=== PATIENT | female | born 1955 | race Caucasian/White ===

== ENCOUNTER 2018-04-28 12:06 | Inpatient (IN) | payer SELFPAY ==
[2018-04-28] MEDS ORDERED: Piperacillin/Tazobactam 4.5 GM VIAL ONE (12:13)
[2018-04-28] MEDS ORDERED: Morphine 4 MG/ML VIAL ONE (12:26)
[2018-04-28] MEDS ORDERED: Ondansetron PF 4 MG/2 ML Vial ONE ×2 (12:26→15:15)
[2018-04-28 12:49] LABS: Hemoglobin 17.2 g/dL (12.0-16.0); Mean Corpuscular Hemoglobin 31.5 pg (27.0-31.0); Mean Corpuscular Volume 95.2 fL (78.0-98.0); Platelet Count 292 thou/uL (130-400); RBC Distribution Width 11.7 % (11.5-14.5); Red Blood Cell (RBC) Count 5.46 mill/uL (4.20-5.40); White Blood Cell (WBC) Count 6.2 thou/uL (4.8-10.8)
--- NOTE | 2018-04-28 13:00 | RAD ---
AP VIEW CHEST: HISTORY: Possible perforated bowel. FINDINGS: AP view chest demonstrates a large amount of free intraperitoneal gas beneath the right and left kay diaphragm. The lungs are well aerated. No acute intrathoracic abnormality is seen. IMPRESSION: Large amount of free intraperitoneal air filling much of the peritoneal cavity. POS: [facility]
[2018-04-28] MEDS ORDERED: Fentanyl 100 MCG/2 ML VIAL ONE ×5 (13:03→18:05)
[2018-04-28 13:08] LABS: Lymphocytes 38 % (21-51); MDiff Complete? YES; Monocytes 3 % (0-10); Neutrophil 49 % (42-75); RBC Morphology Normal; Reactive Lymphocytes 9 % (0-10)
[2018-04-28 13:14] LABS: ALT (SGPT) 15 U/L (8-55); AST (SGOT) 31 U/L (5-34); Albumin 3.6 g/dL (3.4-4.8); Alkaline Phosphatase 61 U/L (40-150); Anion Gap 17 mmol/L (10-20); BUN (Urea Nitrogen) 8 mg/dL (9.8-20.1); Bilirubin, Total 0.4 mg/dL (0.2-1.2); Calc. Creatinine Clearance 0 mL/min (70-130); Calcium 8.5 mg/dL (7.8-10.44); Carbon Dioxide 17 mmol/L (23-31); Chloride 111 mmol/L (98-107); Estimated GFR-MDRD 78; Globulin 3.2 g/dL (2.4-3.5); Glucose 124 mg/dL (80-115); Potassium 4.6 mmol/L (3.5-5.1); Protein, Total 6.8 g/dL (6.0-8.3); Sodium 140 mmol/L (136-145)
[2018-04-28 13:15] LABS: INR-International Normal Ratio 1.2; PTT 27.2 SEC (22.9-36.1)
--- NOTE | 2018-04-28 13:15 | HP ---
HISTORY: Ms. Cheng is a 63-year-old woman with 20 pounds weight loss over the last 1 year associated with abnormal bowel habits including alternating episodes of constipation and diarrhea. She recently had some bloody bowel movements. The patient was undergoing a colonoscopy today. A colon mass was reportedly noted at approximately 20 cm from the anal verge and colon was inadvertently perforated. The patient was transported to the emergency department to be evaluated for surgical intervention. At the time of my evaluation, the patient is awake and alert. She reports a 10/10 abdominal pain associated with nausea and dry heaving. She denies any fevers or chills. PAST MEDICAL HISTORY: Pertinent for recurrent crampy abdominal pain over the last 1 year. PAST SURGICAL HISTORY: Pertinent for cervical spine diskectomy, childhood tonsillectomy and adenoidectomy, and total abdominal hysterectomy. SOCIAL HISTORY: She admits to smoking 10-12 cigarettes per day. She has smoked for over 30 years. She admits to occasional intake of ethanol in moderate amounts. She denies any illicit drug abuse. PRE-HOSPITAL MEDICATIONS: Includes melatonin, which she takes at nighttime for sleep. ALLERGIES: THE PATIENT DENIES ANY KNOWN DRUG ALLERGIES. REVIEW OF SYSTEMS: 10-point review of systems is essentially unremarkable except as stated in past medical history and chief complaint. PHYSICAL EXAMINATION: GENERAL: This reveals a 63-year-old normally developed woman, who is otherwise coherent and interactive, appears stated age. The patient is alert and oriented x3. She appears to be in acute distress secondary to severe abdominal pain. VITAL SIGNS: Today include blood pressure 111/78, pulse is 107, respiratory rate is 20, temperature is 98.2 degrees Fahrenheit, and oxygen saturation is 97% on room air. HEENT: Reveals normocephalic and atraumatic. EYES: Pupils are equal, round, reactive to light and accommodation. NECK: She has a healed right neck incision consistent with prior history of cervical neck diskectomy. HEART: Reveals regular rate with sinus tachycardia. No murmurs or gallops auscultated. LUNGS: Clear to auscultation bilaterally. Her breathing is regular and nonlabored. ABDOMEN: Soft and diffusely tender to palpation with gross rebound tenderness present. Liver and spleen nonpalpable below costal margin. EXTREMITIES: 2+ radial and pedal pulses bilaterally. No ankle edema is present. NEUROLOGIC: Reveals no focal deficits present. LABORATORY FINDINGS: Includes a CBC with 6200 white blood cells, hemoglobin and hematocrit noted at 17.2 and 52.0 respectively. Platelet count is 292,000. Metabolic profile as well as coagulation studies have been ordered, results pending at time of this dictation. IMPRESSION: 1. Acute colon perforation with profound peritonitis. 2. Reportedly colon mass, likely colon carcinoma given this patient's clinical history. PLAN: Exploratory laparotomy with partial colectomy and primary anastomosis. There is a possibility for colostomy or protective ileostomy if the bowel prep is inadequate. Above findings and plan has been discussed with the patient and her adult son at bedside. They both indicated understanding of information given. I answered their questions. The patient has granted consent for this admission and surgical intervention. Job ID: [id number]
[2018-04-28] MEDS ORDERED: Neomycin-Polymyxin 1 ML AMP ONE (13:18)
[2018-04-28] MEDS ORDERED: Albumin 5% 500 ML ONE ×2 (13:49→14:50)
[2018-04-28] MEDS ORDERED: CEFAZOLIN 1 GM VIAL ONE (14:20)
[2018-04-28] MEDS ORDERED: PHENYLEPHRINE-NS 100 MCG/ML 10 ML SYRINGE ONE ×2 (14:41→15:15)
[2018-04-28] MEDS ORDERED: Famotidine/PF 20 mg/2ml Vial ONE (14:50)
[2018-04-28] MEDS ORDERED: Fentanyl 250 MCG/5 ML VIAL ONE (14:50)
[2018-04-28] MEDS ORDERED: Vecuronium 10 MG VIAL ONE (14:50)
[2018-04-28] MEDS ORDERED: Norepinephrine 8 MG/0.9% NS 0 ML ONE (14:51)
[2018-04-28] MEDS ORDERED: Phenylephrine HCL 10 MG/ML VIAL ONE (14:52)
[2018-04-28] MEDS ORDERED: PROPOFOL 200 MG/20 ML VIAL ONE (15:15)
[2018-04-28] MEDS ORDERED: Succinylcholine Chloride 20 MG/ML 10 ml SYRINGE FS ONE (15:15)
[2018-04-28] MEDS ORDERED: Rocuronium Bromide 10 MG/ML (10ML VIAL) ONE (15:15)
[2018-04-28] MEDS ORDERED: ePHEDrine 50 MG/ML VIAL ONE (15:15)
[2018-04-28] MEDS ORDERED: Lidocaine 1% PF 5 ML VIAL ONE (15:15)
--- NOTE | 2018-04-28 15:19 | CON ---
DATE OF CONSULTATION: 04/28/2018 CONSULTING PHYSICIAN: Parminder Toure MD for [facility] Obstetric Hospitalist. REASON FOR CONSULTATION: Right adnexal mass encountered at laparotomy. HISTORY OF PRESENT ILLNESS: Ms. Cheng is a 63-year-old white female who was undergoing a colon[facility] for 20-pound weight loss with abnormal bowel habits including constipation and diarrhea. She had a perforation noted at the time of colonoscopy, approximately 20 cm from the anal verge. She was transported to the ED where Dr. Metz evaluated her, diagnosed peritonitis with bowel perforation, and the patient underwent exploratory laparotomy. Upon entering the abdominal cavity, Dr. Metz encountered a large right adnexal mass. This mass was evaluated by myself and appears to be likely ovarian malignancy, measuring approximately 20 x 10 x 10 cm. The patient is status post abdominal hysterectomy. No omental caking was noted. No areas consistent with metastasis were noted in the abdominal cavity, and no significant ascites was encountered upon entry. 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 PAST MEDICAL HISTORY: The patient has abdominal pain, otherwise unremarkable. PAST SURGICAL HISTORY: Cervical spine diskectomy and tonsils and adenoids. SOCIAL HISTORY: 10 to 12 cigarettes per day for 30 years. Occasional alcohol. No drug use. The patient's son is present, but is out of the postoperative family area at this time. ALLERGIES: NONE. MEDICATIONS: Melatonin. IMPRESSION: Likely, ovarian malignancy, status post abdominal hysterectomy with bowel perforation that will likely result in colostomy. No evidence of gross intraabdominal metastasis, but survey limited secondary to the patient's acute bowel perforation with fecal contamination. PLAN: Discussed with Dr. Metz our options and my concerns. I asked that he go ahead and remove the left adnexum, which he plans to do so during the case. We will draw CA-125 level immediately in recovery room. We will follow this. Likely, the patient has stage II or III ovarian malignancy. Appropriate management was complicated by the patient's acute peritonitis with bowel perforation. We will plan to follow up on final pathology as well as CA-125 and anticipate referral to Gynecologic Oncology. More extensive intraabdominal evaluation without gross metastasis would likely increase both the patient in hospital morbidity and mortality and would likely not alter management over the next 1 to 3 months. The patient could have complete staging procedure at the time of colostomy reversal or independently after convalescence from this episode of care. Job ID: [id number]
[2018-04-28] MEDS ORDERED: SUGAMMADEX SODIUM 500 MG/5 ML VIAL ONE (16:28)
[2018-04-28] MEDS ORDERED: Meperidine HCl/PF 25 MG/ML VIAL SLOW IVP PRN (17:27)
[2018-04-28] MEDS ORDERED: Promethazine HCl 25 MG/ML VIAL IM PRN ×2 (17:27→17:30)
[2018-04-28] MEDS ORDERED: Ketorolac Tromethamine 30 MG/ML VIAL IVP PRN (17:27)
[2018-04-28] MEDS ORDERED: Promethazine HCl 25 MG/ML VIAL SLOW IVP PRN (17:27)
[2018-04-28] MEDS ORDERED: Ondansetron HCl/PF 4 MG/2 ML Vial IVP PRN (17:27)
[2018-04-28] MEDS ORDERED: Communication Order-Pharmacy FS SCH (17:30)
[2018-04-28] MEDS ORDERED: diphenhydrAMINE 50 MG/ML VIAL IVP PRN (17:30)
[2018-04-28] MEDS ORDERED: diphenhydrAMINE 25 MG CAP PO PRN (17:30)
[2018-04-28] MEDS ORDERED: Naloxone HCl 0.4 mg/ml Vial IV PRN (17:30)
[2018-04-28] MEDS ORDERED: diphenhydrAMINE 50 MG/ML VIAL IM PRN (17:30)
[2018-04-28] MEDS ORDERED: Dextrose 5% in Water 1,000 ML IV PRN (17:30)
[2018-04-28] MEDS ORDERED: Dextrose 50% Abboject 50 ML SYRINGE SLOW IVP PRN (17:30)
[2018-04-28] MEDS ORDERED: HYDROmorphone 10 mg/100 ml CADD IVPB PRN (17:30)
[2018-04-28] MEDS ORDERED: Ondansetron PF 4 MG/2 ML Vial IVP PRN (17:30)
[2018-04-28] MEDS ORDERED: Ketorolac Tromethamine 30 MG/ML VIAL ONE (17:37)
[2018-04-28] MEDS ORDERED: Promethazine HCl 25 MG/ML VIAL ONE (17:45)
[2018-04-28] MEDS ORDERED: Meperidine HCl/PF 25 MG/ML VIAL ONE (18:02)
--- NOTE | 2018-04-28 18:37 | RAD ---
ABDOMEN ONE VIEW: History: Dobbhoff tube placement. Comparison: None. FINDINGS: An enteric tube is in place with the tip in the gastric fundus. Dobbhoff tube tip projects over the 4 th portion duodenum. There are distended loops of bowel in the abdomen. IMPRESSION: Satisfactory position of the Dobbhoff tube. POS: [facility]
--- NOTE | 2018-04-28 19:04 | OP ---
DATE OF PROCEDURE: 04/28/2018 PREOPERATIVE DIAGNOSES: 1. Colon perforation. 2. Colon mass. 3. Acute peritonitis. POSTOPERATIVE DIAGNOSES: 1. Stage 4 colorectal carcinoma with colon perforation. 2. Right ovarian carcinoma. PROCEDURES PERFORMED: 1. Exploratory laparotomy. 2. Right oophorectomy. 3. Low Anterior colo-rectal resection with end-colostomy. 4. Wedge liver biopsy. 5. Placement of feeding nasojejunal tube. ANESTHESIA: General endotracheal. ESTIMATED BLOOD LOSS: 300 mL. FLUIDS GIVEN: 1900 mL crystalloids and 1000 mL 5% albumin. COMPLICATIONS: None apparent to operation. INDICATIONS FOR PROCEDURE: A 63-year-old woman was undergoing colonoscopy to evaluate a 20 pounds weight loss associated with hematochezia. Colon perforation was identified. The patient is transferred to the care of Surgical Service for surgical intervention. Clinical examination revealed acute peritonitis. The patient was brought to the operating room for laparotomy. The findings are consistent with very bulky large right ovarian mass, multiple implants on the liver suspicious for metastatic disease, obstructive sigmoid and rectal masses requiring separate resections. DESCRIPTION OF PROCEDURE: Informed consent was obtained from the patient, was brought to the operating room and placed in supine position. Following general anesthesia, the abdomen was sterilely prepped and draped in the usual fashion. Shah catheter having been placed to bedside drain and a nasogastric tube inserted and placed to wall suction. A midline incision was made using #10 scalpel. Incision was carried through subcutaneous tissue to maintain hemostasis using cautery. The fascia was incised midline exposing the peritoneum beneath, which was grasped x2 with hemostats. The peritoneal cavity was sharply entered using Metzenbaum scissors. Immediately a very large bulky right ovarian mass was encountered. Additionally over 2000 mL of liquid stool was evacuated from the peritoneal cavity. We then proceeded with exploration. Small bowel was run from ligament of Treitz down to terminal ileum. No pathology identified. The large intestine was inspected from the cecum through the ascending, transverse, descending, sigmoid colon, and rectum. Approximately 6 cm from the peritoneal reflection, 5 mm perforation was noted medial to the sigmoid colon. We were able to close this temporarily to prevent further contamination. This was achieved using a pursestring suture of 3-0 silk. At that juncture, we decided to proceed with the sigmoidectomy. To achieve this rent approximately 4 cm from the perforation through which a contour stapler was introduced and the bowel was divided. Another rent was created in the mesentery of the descending colon approximately 6 cm proximal to the obstructive sigmoid colon mass. It was noted a contour stapler was introduced and the bowel was divided. Mesentery of the specimen was serially divided using LigaSure device with good hemostasis. The specimen was passed off the operative field. The abdomen was explored in all 4 quadrants. Liver was palpated of some multiple implants. I suspected this to be metastatic implants. The wedge liver biopsy was performed using a scalpel, sending 1 of this implants to Pathology for frozen section, which was consistent with adenocarcinoma on report. Good hemostasis was achieved from the biopsy site. I turned my attention to the bulky ovarian mass. This was mobilized into the wound bluntly along the right lateral gutter with good hemostasis achieved using cautery. Dissected out the ovarian ligament laterally dividing this between two clamps. The stump was suture ligated using a stick tie of 0 silk and this was also doubly ligated with a free tie of 0 silk. I did invite Dr. Martinez from Gynecology for an intraoperative consultation and he was agreeable with the right oophorectomy. Note that exploration of the abdominal cavity did not reveal any mesenteric or intraperitoneal implants. There clearly was no omental kicking. My initial plan was to proceed with a primary colorectal anastomosis with protective ileostomy. I proceeded to explore the rectum. Palpation of the rectum revealed a very hard rectal mass on the tip of my finger. I decided therefore to proceed with further dissection of the rectum below the peritoneal resection. I stayed close to the rectum. Care taken to avoid injury to the ureters. The mesorectum was serially divided using ligature. Approximately 4 cm below the peritoneal reflection encountered this bulky rectal mass. Further dissection took us to the distal aspect of the mass. I was able to mobilize the adherent bladder off the mass bluntly. Care taken to avoid injury to the bladder itself. I then applied a TA stapling device approximately 2 cm below this rectal mass, the rectum was divided. Specimen was passed off the operative field for transmission to Pathology. Throughout my exploration, the left tube and ovary were not identified as this may very well have been surgically removed during the patient's historical total abdominal hysterectomy. Finding no other pathology, exploration was terminated at this juncture and the abdomen was copiously irrigated with a liter of sterile saline. A core incision was then made in the left lower quadrant in the area chosen for the placement of the ostomy. This was achieved using #10 scalpel. Incision was carried down to the level of the fascia. I used a tonsil clamp to create a defect through this core incision dilating this defect to 3 fingerbreadths. Baldwin forceps introduced into the peritoneal cavity through this defect grasping the staple end of the descending colon, which was pulled through and secured within the abdominal cavity using stay sutures of 3-0 silk at 4 points. At this juncture, a feeding nasojejunal tube was then introduced by Anesthesia, tip of which was palpated by myself within the gastric lumen. I manipulated the tip of this catheter into proximal small bowel without resistance. All sponges and instruments were reported as correct x2. Small bowel was returned to normal anatomic location. Omentum was drawn over the remainder of the viscera. Fascia was approximated in the midline using a running stitch of #1 single stranded PDS. Subcutaneous tissues were pulse lavaged with 3 L of saline. Using a separate closing instruments, the skin was closed using quentin and sterile dressings was applied. I turned my attention to the staple end of the descending colon through the skin , where the ostomy will be formed. I excised the staple line using the Fuchs scissors. The functional Elva colostomy was protected using interrupted sutures of 3-0 Vicryl. Ostomy appliance was put in place. The patient tolerated the operation without any apparent complication and was returned to the recovery room in satisfactory condition. Job ID: [id number] [facility]
[2018-04-28] MEDS: Sodium Chloride 0.9% 1,000 ML IV SCH (19:30)
[2018-04-28 19:41] VITALS: BMI 23.7
[2018-04-28] MEDS ORDERED: Lactated Ringer's 500 ML IV SCH (21:00)
[2018-04-28] MEDS: Ketorolac Tromethamine 30 MG/ML VIAL IVP SCH (21:07)
[2018-04-28] MEDS: Piperacillin/Tazobactam 3.375 GM in Sodium Chloride 0.9% 100 ML IVPB SCH (21:07)
[2018-04-28 21:28] LABS: Hemoglobin 10.9 g/dL (12.0-16.0); Mean Corpuscular HGB CONC 33.2 g/dL (32.0-36.0); Mean Corpuscular Hemoglobin 32.4 pg (27.0-31.0); Mean Corpuscular Volume 97.5 fL (78.0-98.0); Platelet Count 181 thou/uL (130-400); RBC Distribution Width 11.6 % (11.5-14.5); Red Blood Cell (RBC) Count 3.35 mill/uL (4.20-5.40)
[2018-04-28 21:43] LABS: Lactic Acid 2.1 mmol/L (0.5-2.2)
[2018-04-28 21:46] LABS: Band 9 % (5-11); Eosinophils 1 % (0-10); Lymphocytes 44 % (21-51); MDiff Complete? YES; Monocytes 9 % (0-10); Neutrophil 29 % (42-75); Reactive Lymphocytes 8 % (0-10)
[2018-04-28 21:48] LABS: Anion Gap 10 mmol/L (10-20); BUN (Urea Nitrogen) 10 mg/dL (9.8-20.1); Calc. Creatinine Clearance 66 mL/min (70-130); Calcium 6.8 mg/dL (7.8-10.44); Carbon Dioxide 17 mmol/L (23-31); Chloride 117 mmol/L (98-107); Estimated GFR-MDRD 74; Glucose 151 mg/dL (80-115); Magnesium 1.1 mg/dL (1.6-2.6); Phosphorus 2.9 mg/dL (2.3-4.7); Potassium 3.4 mmol/L (3.5-5.1); Sodium 141 mmol/L (136-145)
[2018-04-28] MEDS ORDERED: Magnesium 2 GM/50 ML 2 GM in Premix Bag 1 BAG IVPB SCH (22:15)
[2018-04-28] MEDS ORDERED: Potassium Phosphate 30 MMOL in Sodium Chloride 0.9% 500 ML IVPB SCH (23:00)
[2018-04-29] MEDS: Ketorolac Tromethamine 30 MG/ML VIAL IVP SCH ×5 (00:19→23:59)
[2018-04-29] MEDS ORDERED: Lactated Ringer's 500 ML IV SCH (00:45)
[2018-04-29] MEDS ORDERED: Lactated Ringer's 1,000 ML IV SCH ×3 (01:15→12:00)
[2018-04-29] MEDS: Piperacillin/Tazobactam 3.375 GM in Sodium Chloride 0.9% 100 ML IVPB SCH ×4 (01:57→20:04)
[2018-04-29] MEDS ORDERED: Hydrocortisone Sod Succ/PF 100 mg/2 ml Vial IVP SCH (02:23)
[2018-04-29 02:38] LABS: Base Excess (BEa) -4.1 mEq/L (-2.0 to +3.0); CO2 Tension 32.8 mmHg (35.0-45.0); Hemoglobin (Hb) 9.4 g/dL (12.0-16.0); O2 Tension (PaO2) 70.3 mmHg (> 80.0)
[2018-04-29 02:39] LABS: Calcium, Ionized 1.04 mmol/L (1.12-1.30); Potassium - ABG Lab 3.95 mmol/L (3.70-5.30); Puncture Site LINE
[2018-04-29] MEDS: Norepinephrine 8 MG/250 ML BAG IVPB PRN ×3 (02:54→16:52)
[2018-04-29] MEDS: Sodium Chloride 0.9% 1,000 ML IV SCH (02:57)
[2018-04-29] MEDS ORDERED: Calcium Chloride 1 GM/10 ML Abboject SYRINGE IVP SCH (03:00)
[2018-04-29 03:06] LABS: Hemoglobin 9.8 g/dL (12.0-16.0); Mean Corpuscular HGB CONC 33.5 g/dL (32.0-36.0); Mean Corpuscular Hemoglobin 32.5 pg (27.0-31.0); Mean Corpuscular Volume 96.9 fL (78.0-98.0); Mean Platelet Volume 7.2 fL (7.4-10.4); Platelet Count 164 thou/uL (130-400); RBC Distribution Width 11.7 % (11.5-14.5)
[2018-04-29 03:50] LABS: Band 22 % (5-11); Lymphocytes 39 % (21-51); MDiff Complete? YES; Metamyelocyte 2 % (0-0); Monocytes 5 % (0-10); Neutrophil 28 % (42-75); Reactive Lymphocytes 4 % (0-10)
[2018-04-29 03:57] LABS: Anion Gap 11 mmol/L (10-20); BUN (Urea Nitrogen) 11 mg/dL (9.8-20.1); Calc. Creatinine Clearance 59 mL/min (70-130); Calcium 6.6 mg/dL (7.8-10.44); Carbon Dioxide 16 mmol/L (23-31); Chloride 118 mmol/L (98-107); Estimated GFR-MDRD 65; Glucose 146 mg/dL (80-115); Magnesium 1.6 mg/dL (1.6-2.6); Phosphorus 4.7 mg/dL (2.3-4.7); Potassium 3.8 mmol/L (3.5-5.1); Sodium 141 mmol/L (136-145)
[2018-04-29 04:00] LABS: Lactic Acid 1.7 mmol/L (0.5-2.2)
[2018-04-29 04:26] LABS: Bilirubin Small (Negative); Blood, Urine Moderate (Negative); Clarity CLEAR (Clear); Glucose, Urine (Dipstick) Negative (Negative); Leukocyte Trace (Negative); Nitrite Negative (Negative); Protein, Urine (Dipstick) 30 mg/dL (Neg-Trace); Specific Gravity, Urine 1.029 (1.002-1.036)
[2018-04-29 04:28] LABS: Bacteria/HPF None Seen HPF (None Seen); RBC/HPF 21-50 HPF (0-3)
[2018-04-29 04:29] LABS: Pathc Cast-AUWi Flag 4.94 (0-2.49)
[2018-04-29 04:39] LABS: Renal Epithelial 0-3 HPF (0-3)
[2018-04-29 04:41] LABS: Other Casts/LPF 0-3 FINELY GRAN LPF (0-3 Hyaline)
[2018-04-29 04:45] LABS: Urine Culture Reflex No No
[2018-04-29] MEDS ORDERED: Magnesium Sulfate 4 GM in Sodium Chloride 0.9% 250 ML 250 ML IVPB SCH (07:15)
--- NOTE | 2018-04-29 07:37 | PRG ---
DATE OF SERVICE: 04/29/2018 TIME OF SERVICE: 0720 hours. SUBJECTIVE: Ms. Cheng is relaxing this morning. She actually looks very well considering the large surgical procedure she had yesterday. Please see Trauma Services notes for vitals and other findings. I reviewed the operative note and noted that Dr. Metz was unable to locate the left adnexa. I agree with him as that was likely removed at the time of her hysterectomy. I also noted that they found a large rectal mass. It is unclear as to whether or not this rectal mass has relationship to her large adnexal mass, although this would not be impossible. 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 The other possibility is that this is a secondary primary in the right adnexa. Third possibility would be ovarian primary with metastasis to obstructing rectal mass that was found. We will await pathology results to further assess as this may affect future surgical and chemotherapy management of the patient. We will check the patient out to OB Hospitalist today and follow from a distance. Awaiting pathology results. Job ID: [id number]
[2018-04-29] MEDS: Enoxaparin Sodium 40 MG/0.4 ML SYRINGE SC SCH (08:25)
[2018-04-29] MEDS: Lactated Ringer's 1,000 ML IV SCH ×3 (08:30→23:41)
--- NOTE | 2018-04-29 09:43 | RAD ---
CHEST ONE VIEW: HISTORY: Central line placement. COMPARISON: Radiograph from the prior day. FINDINGS: A left subclavian central venous catheter sits at the inferior SVC. No pneumothorax. Free intraperi toneal air is not well assessed on this examination. Two enteric tubes are in place. The enteric suction catheter tip sits over the gastric fundus, and t he weighted feeding tube tip is below the diaphragm and out of the field of view. Layering effusions. IMPRESSION: 1. Lines and tubes as above. 2. Free intraperitoneal air is not well assessed on this examination. POS: [facility]
--- NOTE | 2018-04-29 11:43 | PRG ---
DATE OF SERVICE: 04/29/2018 SUBJECTIVE: Ms. Cheng is a 63-year-old woman, who is postop day #1, status post exploratory laparotomy, right salpingo-oophorectomy, and extended Keeley's procedure. Overnight, the patient has required a norepinephrine at 25 mcg/minute to support blood pressure. Urinary output has been marginal. The patient had received fluid boluses in the interim. She is awake and alert. She reports adequate pain control. [place] Coma Scale is noted at 15. OBJECTIVE: VITAL SIGNS: This morning, blood pressure 94/65, pulse is 119, respiratory rate is 20, temperature 97.6 degrees Fahrenheit, oxygen saturation is 96% on 2 L by nasal cannula oxygen. HEENT: Pupils are equal, round, reactive to light and accommodation. She has no jugular venous distention noted. Oral mucosa is somewhat dry. Otherwise is pink in color. HEART: Reveals regular rate with sinus tachycardia. No murmurs or gallops auscultated. LUNGS: Clear to auscultation bilaterally. Breathing, regular and nonlabored. ABDOMEN: Soft and nondistended. Incision is intact. Dressing is dry. Colostomy is viable with small amount of liquid stool in the appliance. EXTREMITIES: Reveal 2 +radial and pedal pulses bilaterally. No ankle edema is present. NEUROLOGIC: Reveals no focal deficits present. LABORATORY FINDINGS: Today includes a CBC with 2000 white blood cells, hemoglobin 9.8, hematocrit 29.1, platelet count is 164,000. Differential count is as follows; 28 segmented neutrophils, 22 bands, 39 lymphocytes, 5 monocytes. Metabolic profile; sodium 141, potassium is 3.8, chloride is 118, bicarb is 16, creatinine is 0.88, BUN is 11, glucose is 146, magnesium 1.6, phosphorus is 4.7. Total procalcitonin is elevated at 47.89. Serum cortisol level is 28. IMPRESSION: 1. Postop day #1, status post exploratory laparotomy. 2. Metastatic colorectal carcinoma. 3. Right ovarian carcinoma. 4. Septic shock secondary to fecal peritonitis. 5. Acute hypomagnesemia. 6. Acute non-gapped metabolic acidosis. PLAN: 1. Continue with antibiotic therapy. 2. Optimize fluid resuscitation. Additional fluid boluses are required and resuscitation will be guided using central venous access. 3. Correct abnormal electrolytes. 4. We will ask Oncology to evaluate the patient regarding the metastatic colorectal and right ovarian carcinoma. 5. Above findings and plan discussed with the patient, who indicates understanding of information given. I answered her questions. Job ID: [id number]
--- NOTE | 2018-04-29 12:31 | OP ---
DATE OF PROCEDURE: 04/29/2018 INDICATION FOR PROCEDURE: Ms. Cheng is a 63-year-old woman, who is postop day #1, status post exploratory laparotomy, bowel resection, colostomy, and right oophorectomy. The patient had fecal peritonitis from perforated colon. She has required vasopressor support overnight. Fluid resuscitation is ongoing. Decision was made to place a central venous catheter to guide resuscitation. DESCRIPTION OF PROCEDURE: Informed consent obtained from the patient, who was placed in supine position. The left chest wall sterilely prepped and draped in usual fashion. The skin below the left clavicle was anesthetized with 1% lidocaine. Left subclavian vein was cannulated with an 18-gauge introducer needle returning dark venous blood. Needle was withdrawn over the guidewire. A stab incision was made adjacent to the guidewire using 11 scalpel. The dilator was passed over the guidewire down in the subcutaneous tissues. Triple-lumen central venous catheter was then advanced over the guidewire and placed in the left subclavian vein without resistance stopping at the 18 cm yudith. Guidewire was removed. Dark venous blood was aspirated from all 3 ports, which were individually flushed with saline. Catheter was secured to anterior chest wall using 3-0 silk suture at 2 points. Sterile dressings were applied. The patient tolerated this procedure without any apparent complication. Chest x-ray confirmed proper placement of the catheter. No pneumothorax present. Job ID: [id number]
[2018-04-29] MEDS ORDERED: Sodium Chloride 0.9% (PF) 10 ML VIAL FS PRN (14:50)
[2018-04-29] MEDS ORDERED: Pantoprazole 40 MG VIAL IVP SCH (15:00)
[2018-04-29] MEDS: Hydrocortisone Sod Succ/PF 100 mg/2 ml Vial IVP SCH (17:13)
[2018-04-30] MEDS: Norepinephrine 8 MG/250 ML BAG IVPB PRN (02:14)
[2018-04-30] MEDS: Piperacillin/Tazobactam 3.375 GM in Sodium Chloride 0.9% 100 ML IVPB SCH ×4 (02:14→19:58)
[2018-04-30] MEDS: Ketorolac Tromethamine 30 MG/ML VIAL IVP SCH ×3 (06:01→18:33)
[2018-04-30] MEDS: Hydrocortisone Sod Succ/PF 100 mg/2 ml Vial IVP SCH ×5 (06:01→23:10)
[2018-04-30 06:42] LABS: Anion Gap 10 mmol/L (10-20); BUN (Urea Nitrogen) 9 mg/dL (9.8-20.1); Calc. Creatinine Clearance 64 mL/min (70-130); Calcium 7.9 mg/dL (7.8-10.44); Carbon Dioxide 20 mmol/L (23-31); Chloride 116 mmol/L (98-107); Estimated GFR-MDRD 71; Glucose 91 mg/dL (80-115); Magnesium 1.9 mg/dL (1.6-2.6); Potassium 3.9 mmol/L (3.5-5.1); Sodium 142 mmol/L (136-145)
[2018-04-30 06:51] LABS: Mean Corpuscular HGB CONC 33.4 g/dL (32.0-36.0); Mean Corpuscular Hemoglobin 32.4 pg (27.0-31.0); Mean Platelet Volume 7.1 fL (7.4-10.4); Platelet Count 148 thou/uL (130-400); Red Blood Cell (RBC) Count 2.76 mill/uL (4.20-5.40); White Blood Cell (WBC) Count 16.6 thou/uL (4.8-10.8)
[2018-04-30 06:57] LABS: Band 54 % (5-11); Lymphocytes 4 % (21-51); MDiff Complete? YES; Metamyelocyte 2 % (0-0); Monocytes 5 % (0-10); Neutrophil 29 % (42-75); Platelet Morphology Comment Appears Adequate; Polychromasia SLIGHT = 2-3 cells (100X) (0-2/hpf); Reactive Lymphocytes 6 % (0-10); Reflex for Review?? YES; Vacuoles MODERATE
[2018-04-30] MEDS: Enoxaparin Sodium 40 MG/0.4 ML SYRINGE SC SCH (08:44)
[2018-04-30] MEDS: Pantoprazole 40 MG VIAL IVP SCH (08:44)
[2018-04-30] MEDS: Lactated Ringer's 1,000 ML IV SCH ×3 (09:36→19:58)
--- NOTE | 2018-04-30 10:38 | PRG ---
DATE OF SERVICE: 04/30/2018 SUBJECTIVE: Ms. Cheng is a 63-year-old woman, who is postoperative day #2, status post exploratory laparotomy with low anterior resection and excision of sigmoid and rectal masses as well as right oophorectomy. The patient has been in the intensive care unit on vasopressor support for acute septic shock secondary to fecal peritonitis. This morning, she has been surgically weaned off vasopressors. Urinary output is adequate. The patient is awake and alert, reporting adequate pain control. PHYSICAL EXAMINATION: VITAL SIGNS: Currently off vasopressor support includes blood pressure 128/64, pulse is 104, respiratory rate is 26, temperature is 97.9 degrees Fahrenheit, maximum temperature in last 24 hours is 98.4 degrees Fahrenheit, oxygen saturation is 93% on room air. HEENT: Reveals pupils are equal, round, reactive to light and accommodation. Extraocular muscles are intact bilaterally. No sclerae icterus present. NECK: She has no jugular venous distention noted. HEART: Reveals regular rate with sinus tachycardia. No murmurs or gallops auscultated. LUNGS: Clear to auscultation bilaterally. Her breathing, regular and nonlabored. ABDOMEN: Soft and nondistended. Incision is intact, clean, dry. Colostomy is viable with minimal amount of liquid stool and gas in the appliance. Nasogastric tube had returned 100 mL in the last 24 hours of slightly bile-tinged gastric effluent. EXTREMITIES: Reveal 2+ radial and pedal pulses bilaterally. No ankle edema is present. NEUROLOGIC: Reveals no focal deficits present. LABORATORY FINDINGS: Today includes a CBC with 16,600 white blood cells, hemoglobin and hematocrit are 9.0 and 26.8 respectively, platelet count is 148,000. Metabolic profile; sodium 142, potassium 3.9, chloride is 116, bicarb is 20, BUN is 9, creatinine is 0.81, glucose is 91, magnesium is 1.9, and phosphorus is 3.0. IMPRESSION: 1. Postoperative day #2, status post exploratory laparotomy. 2. Metastatic colorectal carcinoma. 3. Right ovarian carcinoma. 4. Acute hypokalemia. 5. Acute hypomagnesemia. PLAN: 1. Correct abnormal electrolytes. 2. We will discontinue nasogastric tube and initiate clear liquid diet. 3. Discontinue Shah catheter as well as the arterial line. 4. We will increase activity per Physical and Occupational Therapy. The patient is hemodynamically stable and will be transferred out of the ICU to general surgical floor today. We will ask Oncology to evaluate the patient once the pathology report is available. Job ID: [id number]
[2018-04-30] MEDS ORDERED: traMADol HCl 50 MG TAB PO PRN (10:52)
[2018-04-30] MEDS ORDERED: Clopidogrel Bisulfate 75 MG TAB ONE (11:29)
[2018-04-30] MEDS: Acetaminophen 500 MG TAB PO SCH ×3 (11:43→23:09)
[2018-04-30 16:14] LABS: Ionized Calcium 4.2 mg/dL (4.5-5.6)
[2018-04-30] MEDS: traMADol HCl 50 MG TAB PO PRN (20:35)
[2018-05-01] MEDS: traMADol HCl 50 MG TAB PO PRN ×4 (02:24→19:50)
[2018-05-01] MEDS: Piperacillin/Tazobactam 3.375 GM in Sodium Chloride 0.9% 100 ML IVPB SCH ×4 (02:24→19:48)
[2018-05-01] MEDS: Acetaminophen 500 MG TAB PO SCH ×4 (05:36→23:03)
[2018-05-01] MEDS: Lactated Ringer's 1,000 ML IV SCH (05:36)
[2018-05-01] MEDS: Hydrocortisone Sod Succ/PF 100 mg/2 ml Vial IVP SCH ×4 (05:38→23:03)
[2018-05-01 06:03] LABS: Band 15 % (5-11); Dohle Bodies SLIGHT; Hemoglobin 9.6 g/dL (12.0-16.0); Lymphocytes 3 % (21-51); MDiff Complete? YES; Mean Corpuscular HGB CONC 32.6 g/dL (32.0-36.0); Mean Corpuscular Hemoglobin 32.1 pg (27.0-31.0); Mean Corpuscular Volume 98.3 fL (78.0-98.0); Mean Platelet Volume 7.7 fL (7.4-10.4); Monocytes 2 % (0-10); Neutrophil 80 % (42-75); Platelet Count 87 thou/uL (130-400); Platelet Morphology Comment Appears Decreased; Red Blood Cell (RBC) Count 2.99 mill/uL (4.20-5.40); White Blood Cell (WBC) Count 16.3 thou/uL (4.8-10.8)
[2018-05-01 06:07] LABS: Anion Gap 9 mmol/L (10-20); BUN (Urea Nitrogen) 12 mg/dL (9.8-20.1); Calc. Creatinine Clearance 71 mL/min (70-130); Calcium 7.6 mg/dL (7.8-10.44); Carbon Dioxide 21 mmol/L (23-31); Chloride 117 mmol/L (98-107); Estimated GFR-MDRD 81; Glucose 77 mg/dL (80-115); Magnesium 1.5 mg/dL (1.6-2.6); Phosphorus 2.6 mg/dL (2.3-4.7); Potassium 3.3 mmol/L (3.5-5.1); Sodium 144 mmol/L (136-145)
[2018-05-01] MEDS ORDERED: Non-Formulary Item 1 EACH (Melatonin [Melatonin] 5 MG) PO PRN (07:24)
[2018-05-01] MEDS ORDERED: Magnesium Sulfate 3 GM in Sodium Chloride 0.9% 250 ML 250 ML IVPB SCH (07:30)
[2018-05-01] MEDS ORDERED: Potassium Chloride 40 MEQ in Premix Bag 1 BAG IVPB SCH (07:30)
[2018-05-01] MEDS ORDERED: Potassium Chloride 40 MEQ, Magnesium Sulfate 3 GM in Sodium Chloride 0.9% 250 ML 250 ML IVPB SCH (07:30)
[2018-05-01] MEDS: Pantoprazole 40 MG VIAL IVP SCH (08:27)
[2018-05-01] MEDS: Enoxaparin Sodium 40 MG/0.4 ML SYRINGE SC SCH (08:28)
[2018-05-01] MEDS ORDERED: Melatonin 3 MG TAB PO PRN (11:24)
--- NOTE | 2018-05-01 13:12 | PRG ---
DATE OF SERVICE: 05/01/2018 SUBJECTIVE: Ms. Cheng is a 63-year-old woman who is postoperative day #3 status post exploratory laparotomy, low anterior resection for colorectal carcinoma, right oophorectomy, and liver biopsy. The patient is awake and alert today. She reports adequate pain control. She is tolerating clear liquid diet. Urinary output has been adequate. The liver biopsy is reported metastatic adenocarcinoma. Remainder of the pathology report for the right ovarian mass, colon and rectum pending at this time. OBJECTIVE: VITAL SIGNS: This morning includes blood pressure 115/76, pulse is 94, respiratory rate is 16, temperature is 97.9 degrees Fahrenheit, oxygen saturation is 95% on 2 L by nasal cannula oxygen. HEART: Reveals regular rate and rhythm. No murmurs or gallops auscultated. LUNGS: Clear to auscultation bilaterally. Her breathing, regular and nonlabored. ABDOMEN: Soft and nondistended. Incision is intact clean dry. The colostomy is viable with some liquid stool and a little bit of gas. Bowel sounds in all 4 quadrants appear normoactive. NEUROLOGIC: Reveals no focal deficits present. LABORATORY FINDINGS: Today include a CBC with 62,200 white blood cells, hemoglobin and hematocrit 9.6 and 29.4 respectively. Platelet count is 87,000. Differential count is as follows 80 segmented neutrophils, 15 bands, 3 lymphocytes, and 2 monocytes. Metabolic profile; sodium 144, potassium 3.3, chloride is 117, bicarb 21, BUN 12, creatinine 0.73, glucose is 77, magnesium 1.5, phosphorus is 2.6. IMPRESSION: 1. Postop day #3 status post exploratory laparotomy. 2. Metastatic colorectal carcinoma. 3. Acute hypokalemia. 4. Acute hypomagnesemia. 5. Acute hypophosphatemia. PLAN: 1. Correct abnormal electrolytes. 2. We will advance diet as tolerated. 3. Increase activity per Physical and Occupational Therapy. 4. We will ask Oncology to evaluate the patient once the report has been rendered on the surgical specimen. The above findings and plan discussed with the patient who indicates understanding of information given. I have answered her questions. Job ID: [id number]
[2018-05-02] MEDS: Piperacillin/Tazobactam 3.375 GM in Sodium Chloride 0.9% 100 ML IVPB SCH ×4 (02:21→20:21)
[2018-05-02] MEDS: traMADol HCl 50 MG TAB PO PRN ×3 (02:35→17:10)
[2018-05-02] MEDS: Hydrocortisone Sod Succ/PF 100 mg/2 ml Vial IVP SCH (05:11)
[2018-05-02] MEDS: Acetaminophen 500 MG TAB PO SCH ×4 (05:12→23:14)
[2018-05-02 05:49] LABS: Anion Gap 11 mmol/L (10-20); BUN (Urea Nitrogen) 17 mg/dL (9.8-20.1); Calc. Creatinine Clearance 70 mL/min (70-130); Calcium 7.9 mg/dL (7.8-10.44); Carbon Dioxide 22 mmol/L (23-31); Chloride 112 mmol/L (98-107); Estimated GFR-MDRD 79; Glucose 76 mg/dL (80-115); Magnesium 1.8 mg/dL (1.6-2.6); Phosphorus 3.6 mg/dL (2.3-4.7); Potassium 3.6 mmol/L (3.5-5.1); Sodium 141 mmol/L (136-145)
[2018-05-02 05:54] LABS: Band 11 % (5-11); Hemoglobin 9.4 g/dL (12.0-16.0); Lymphocytes 9 % (21-51); MDiff Complete? YES; Mean Corpuscular HGB CONC 33.6 g/dL (32.0-36.0); Mean Corpuscular Volume 98.4 fL (78.0-98.0); Mean Platelet Volume 8.1 fL (7.4-10.4); Neutrophil 80 % (42-75); Platelet Count 111 thou/uL (130-400); Platelet Morphology Comment Appears Adequate; RBC Distribution Width 12.1 % (11.5-14.5); Red Blood Cell (RBC) Count 2.85 mill/uL (4.20-5.40)
[2018-05-02] MEDS ORDERED: Magnesium 2 GM/50 ML 2 GM in Premix Bag 1 BAG IVPB SCH (07:30)
[2018-05-02] MEDS ORDERED: Potassium Phosphate 15 MMOL in Sodium Chloride 0.9% 250 ML 250 ML IVPB SCH (07:30)
[2018-05-02] MEDS: Enoxaparin Sodium 40 MG/0.4 ML SYRINGE SC SCH (08:05)
[2018-05-02] MEDS: Pantoprazole 40 MG VIAL IVP SCH (08:06)
--- NOTE | 2018-05-02 12:31 | PRG ---
DATE OF SERVICE: 05/02/2018 SUBJECTIVE: The patient was seen this morning sitting up in chair, well appearing with no signs of any acute distress. She has reported that she slept well overnight and is tolerating a full liquid diet. She denies nausea, vomiting, or diarrhea. Reports pain is well controlled. She has no complaints. Asked questions about visit from Oncology. They were asked to see the patient yesterday by Dr. Metz, and it is expected that they will see her today. OBJECTIVE: VITAL SIGNS: Temperature 98.3, pulse 77, respirations 14, oxygen saturation 92% on room air, blood pressure 131/88. GENERAL: Well-appearing middle-aged female, sitting up in chair with positive ostomy output. No signs of acute distress. PULMONARY: Equal chest rise and fall. Clear breath sounds bilaterally. No signs of acute respiratory distress. HEART: Regular rate and rhythm. No murmurs, gallops, or rubs. ABDOMEN: Soft, nontender, nondistended. Midline abdominal wound is clean, dry, and intact. Ostomy appearing well with positive liquid brown stool in pouch. EXTREMITIES: Gross motor and sensation intact in all extremities. 2+ pulses in all extremities. No significant swelling noted. LABORATORY VALUES: White count 20.0, hemoglobin 9.4, hematocrit 28.1, platelets 111. Sodium 141, potassium 3.4, chloride 112, carbon dioxide 22, BUN 17, creatinine 0.74, glucose 76, phos 3.6, magnesium 1.8. DIAGNOSTIC FINDINGS: There are no diagnostic findings to report. ASSESSMENT: 1. Postop day #4, status post ex lap with colorectal resection. 2. Metastatic colorectal carcinoma. 3. Septic shock, resolved. 4. Hypokalemia. 5. Hypomagnesemia. 6. Hypophosphatemia. PLAN: Correct electrolytes today with IV replacement. Advance to regular diet. Continue work with physical and occupational therapy pending recommendations by Oncology. They were consulted yesterday and should see the patient today. The patient was seen and examined today by myself and the patient was discussed with Dr. Metz this morning after rounds. Job ID: [id number]
--- NOTE | 2018-05-02 14:39 | CON ---
DATE OF CONSULTATION: REASON FOR CONSULT: Metastatic rectal cancer. HISTORY OF PRESENT ILLNESS: The patient is a pleasant 63-year-old female, who has had a 20-pound weight loss and a change in bowel habits over the past several months. She admits to bloody bowel movements. She was having colonoscopy this past Saturday. There was a colon mass noted at approximately 20 cm from the anal verge. The mass was not overtly perforated. She was sent to the emergency room for evaluation. Dr. Metz saw the patient and felt she had peritonitis. She underwent an exploratory laparotomy. There was a large adnexal mass noted measuring 20 x 10 x 10. She also had multiple implants on the liver suspicious for metastatic disease. There was an obstructive sigmoid and rectal mass. A right oophorectomy, low anterior colorectal resection with end-colostomy, and wedge liver biopsy were performed. All three pathologies have returned adenocarcinoma consistent with rectum. The sigmoid tumor measured 2.5 x 2 x 1.6. The rectal mass measured 7.5 x 5.4 x 2.0. 0/22 lymph nodes were positive for tumor. The patient is recovering from her surgery and now eating. We are asked to see the patient regarding treatment options. PAST MEDICAL HISTORY: Tobacco use. PAST SURGICAL HISTORY: 1. Cervical discectomy. 2. Total abdominal hysterectomy. ALLERGIES: NO KNOWN DRUG ALLERGIES. HOME MEDICATIONS: None. FAMILY HISTORY: No history of colon cancer. SOCIAL HISTORY: Single, cares for her 87-year-old mother. A [id number] history of smoking. No alcohol or illicit drug use. REVIEW OF SYSTEMS: Ten-point review of systems is negative except for noted in the HPI. PHYSICAL EXAMINATION: VITAL SIGNS: Temperature is 98.2, pulse is 93, respiratory rate 14, blood pressure is 135/86, and she is 94% on room air. GENERAL: Well-developed thin female, in no acute distress. HEENT: Normocephalic, atraumatic. Pupils are equal and reactive to light. NECK: Supple. CARDIOVASCULAR: CV is regular rate and rhythm. LUNGS: Clear. ABDOMEN: Tender. Bowel sounds are positive. She has midline incision with quentin intact by left colonoscopy with brown drainage. EXTREMITIES. There is no clubbing, cyanosis, or edema. SKIN: No rash. HEMATOLOGICAL: There is no petechiae or purpura. NEUROLOGICAL: Nonfocal. PSYCH: The patient is alert, oriented, and appropriate. PERTINENT LABS AND X-RAYS: Current WBCs 20, hemoglobin 9.4, hematocrit 28.1, and platelet count is 111,000. She has 80% neutrophils, 11% bands, 9% lymphocytes. PT is 15, INR is 1.2, and PTT is 27.2. Sodium 141, potassium 3.6, chloride 112, CO2 is 22, BUN is 17, creatinine 0.74, calcium 7.9, lactic acid 1.7, phosphorus 3.6, and magnesium 1.8. CA-125 is 41.7. Total bilirubin is 0.4, AST is 31, ALT is 15, and alkaline phosphatase is 61. Serum total protein is 6.8, albumin 3.6, and globulin 3.1. ASSESSMENT: Metastatic rectal cancer with ovarian, liver, and colon Metastases. DISCUSSION: The patient is a candidate for chemotherapy. She will recover from her surgery and follow up in the outpatient setting with Dr. Rodriguez on May 19 at 9:15 a.m. Financial counselors have been asked to evaluate for financial assistance. Thank you for the consult. We are happy to help this nice lady. Job ID: [id number] MTDD
[2018-05-02] MEDS: Nystatin 500,000 UNITS/5 ML UDCUP SSW SCH ×2 (17:11→20:21)
[2018-05-03] MEDS: Piperacillin/Tazobactam 3.375 GM in Sodium Chloride 0.9% 100 ML IVPB SCH ×4 (01:32→20:23)
[2018-05-03] MEDS: traMADol HCl 50 MG TAB PO PRN ×3 (06:42→20:23)
[2018-05-03] MEDS: Acetaminophen 500 MG TAB PO SCH ×4 (06:42→23:50)
[2018-05-03] MEDS: Pantoprazole 40 MG VIAL IVP SCH (08:04)
[2018-05-03] MEDS: Nystatin 500,000 UNITS/5 ML UDCUP SSW SCH ×4 (08:04→20:23)
[2018-05-03] MEDS: Enoxaparin Sodium 40 MG/0.4 ML SYRINGE SC SCH (08:05)
[2018-05-03 08:12] LABS: Hemoglobin 11.1 g/dL (12.0-16.0); Mean Corpuscular HGB CONC 32.1 g/dL (32.0-36.0); Mean Corpuscular Hemoglobin 31.3 pg (27.0-31.0); Mean Corpuscular Volume 97.5 fL (78.0-98.0); Mean Platelet Volume 7.9 fL (7.4-10.4); Platelet Count 151 thou/uL (130-400); RBC Distribution Width 12.3 % (11.5-14.5); Red Blood Cell (RBC) Count 3.54 mill/uL (4.20-5.40); White Blood Cell (WBC) Count 10.6 thou/uL (4.8-10.8)
[2018-05-03 08:18] LABS: Anion Gap 10 mmol/L (10-20); BUN (Urea Nitrogen) 14 mg/dL (9.8-20.1); Calc. Creatinine Clearance 74 mL/min (70-130); Calcium 7.7 mg/dL (7.8-10.44); Carbon Dioxide 25 mmol/L (23-31); Chloride 104 mmol/L (98-107); Estimated GFR-MDRD 85; Glucose 87 mg/dL (80-115); Magnesium 1.4 mg/dL (1.6-2.6); Phosphorus 3.5 mg/dL (2.3-4.7); Potassium 3.2 mmol/L (3.5-5.1); Sodium 136 mmol/L (136-145)
[2018-05-03 11:05] LABS: Anisocytosis SLIGHT = 6-15 cells (100X) (0-5/hpf); Band 4 % (5-11); Large Platelets SLIGHT; Lymphocytes 2 % (21-51); MDiff Complete? YES; Microcytosis SLIGHT = 6-15 cells (100X) (0-5/hpf); Monocytes 12 % (0-10); Neutrophil 76 % (42-75); Platelet Morphology Comment Appears Adequate; Polychromasia SLIGHT = 2-3 cells (100X) (0-2/hpf); Reactive Lymphocytes 6 % (0-10); Schistocytes SLIGHT = 2-5 cells (100X) (0-1/hpf)
--- NOTE | 2018-05-03 16:07 | PRG ---
DATE OF SERVICE: 05/03/2018 SUBJECTIVE: The patient is a 63-year-old female postop day #5 exploratory laparotomy with right oophorectomy, lower anterior colorectal resection with end-colostomy. The patient is awake, alert, sitting up in the chair, in no distress at this time. She did report not sleeping as well and reports some anxiety about being discharged home and taking care of her colostomy. The patient reports that her pain is well controlled right now. The patient did feel like she might have increased her regular diet too soon as it made her feel a little nauseated. The patient continues to have gas in the colostomy bag. OBJECTIVE: VITAL SIGNS: Blood pressure 121/79, temperature 98.5, pulse 97, respirations 12, and SpO2 93% on room air. GENERAL: The patient is awake, alert, no distress, sitting up in the chair. PULMONARY: Equal chest rise and fall. No signs of acute respiratory distress. Respirations even and unlabored. HEART: Regular rate and rhythm. No pedal edema. ABDOMEN: Soft, nontender, and nondistended. Midline abdominal wound is clean, dry, and intact. Ostomy appearing well with positive liquid brown stool and gas in pouch. EXTREMITIES: Moves all extremities. Good motor strength and sensation to all. 2+ pulses in all extremities. No pedal edema. LABORATORY DATA: WBC 10.6, RBC 3.54, hemoglobin 11.1, hematocrit 34.5, platelets 151. Sodium 136, potassium 3.2, chloride 104, anion gap 10, BUN 14, creatinine 0.70, estimated GFR 85, glucose 87, calcium 7.7, phosphorus 3.5, and magnesium 1.4. ASSESSMENT: 1. Postoperative day #5, status post exploratory laparotomy with colorectal resection. 2. Metastatic colorectal carcinoma. 3. Septic shock, resolved. 4. Hypokalemia. 5. Hypomagnesium. PLAN: Correct the patient's electrolytes. Continue with a regular diet as tolerated. Continue physical therapy and occupational therapy. We will ensure the patient has wound care come and do ostomy education with her. The patient most likely will be discharged home due to no insurance. [facility] bed are not available as of yesterday. The patient was seen by Oncology yesterday and was told she would be a candidate for chemotherapy. The patient to follow up with Dr. Rodriguez on May 19. We will continue the patient's pain regimen. The patient was examined by Dr. Metz during morning rounds. Job ID: [id number] MTDD
--- NOTE | 2018-05-03 17:57 | PRG ---
DATE OF SERVICE: 05/03/2018 SUBJECTIVE: Ms. Cheng is a 63-year-old woman who is postoperative day #5, status post exploratory laparotomy, low anterior resection, right oophorectomy with end-colostomy. She has metastatic rectal carcinoma. She reports adequate pain control. She is tolerating general diet all day. She had one bout of emesis. She thought she might have eaten a bit much of the regular diet earlier today. She is here to learn how to manage a colostomy as wound care teaching will be occurring today. Urinary output has been adequate. The patient reports she is a bit weak and having some difficulty with getting out of bed, has no gait imbalance once she is up. She does, however, participate well with physical and occupational therapy. Physical Therapy had recommended inpatient rehabilitation, which is not available to the patient at this time due to lack of funds. OBJECTIVE: VITAL SIGNS: Today include blood pressure 121/79, pulse is 97, respiratory rate is 12, temperature is 98.5 degrees Fahrenheit, and oxygen saturation is 93% on room air. HEART: Reveals regular rate and rhythm. No murmurs or gallops auscultated. LUNGS: Clear to auscultation bilaterally. Her breathing, regular, nonlabored. ABDOMEN: Soft, nondistended. Incision is intact, clean, and dry. Colostomy is viable and functional with stool and gas. LABORATORY FINDINGS: Today include CBC with normal white blood cell count at 10,600, hemoglobin and hematocrit 11.1 and 34.5 respectively. Platelet count is stable at 151,000. Differential counts as follows; 76 segmented neutrophils, 4 bands, 2 lymphocytes, and 12 monocytes. Metabolic profile; sodium 136, potassium 3.2, chloride is 104, bicarb is 25, BUN is 14, creatinine 0.70, glucose 87, magnesium 1.4, and phosphorus is 3.5. IMPRESSION: 1. Postoperative day #5, status post exploratory laparotomy, low anterior left colonic resection, and right oophorectomy. 2. Metastatic rectal carcinoma. 3. Acute hypokalemia. 4. Acute hypomagnesemia. 5. Acute hypophosphatemia. PLAN: 1. Correct abnormal electrolytes. 2. Complete ostomy teaching. Anticipate discharge in the next 24 hours to home if the patient is comfortable with managing her colostomy. She will be following up with Oncology on an outpatient basis. Job ID: [id number]
[2018-05-04] MEDS: traMADol HCl 50 MG TAB PO PRN ×4 (01:24→19:59)
[2018-05-04] MEDS: Piperacillin/Tazobactam 3.375 GM in Sodium Chloride 0.9% 100 ML IVPB SCH ×4 (01:25→19:59)
[2018-05-04] MEDS: Acetaminophen 500 MG TAB PO SCH ×5 (05:51→23:18)
[2018-05-04] MEDS: Pantoprazole 40 MG VIAL IVP SCH (08:58)
[2018-05-04] MEDS: Enoxaparin Sodium 40 MG/0.4 ML SYRINGE SC SCH (08:58)
[2018-05-04] MEDS: Nystatin 500,000 UNITS/5 ML UDCUP SSW SCH ×4 (09:03→19:59)
--- NOTE | 2018-05-04 15:12 | PRG ---
DATE OF SERVICE: 05/04/2018 SUBJECTIVE: Ms. Cheng is a 63-year-old woman, postoperative day #6 status post laparotomy with low anterior resection, right oophorectomy, and liver biopsy for metastatic rectal carcinoma. She reports adequate pain control. She is weak when ambulating. She is tolerating oral intake. She worked with Wound Care yesterday, obtaining education with regard to care of her colostomy. OBJECTIVE: VITAL SIGNS: This morning include blood pressure 125/78, pulse 97, respiratory rate is 16, temperature is 98.4 degrees Fahrenheit, oxygen saturations 93% on room air. HEART: Reveals regular rate and rhythm. LUNGS: Clear to auscultation bilaterally. Breathing, regular and nonlabored. ABDOMEN: Soft and nondistended. Incision is intact, clean, and dry. Colostomy is viable with output of semiformed stool and gas. NEUROLOGIC: Reveals no focal deficits present. IMPRESSION: 1. Stage IV metastatic, moderate to severe differentiated rectal adenocarcinoma. 2. Stable acute blood loss anemia. 3. Postoperative debility. PLAN: 1. Increase activity per Physical and Occupational therapy. 2. The patient wishes to be discharged to [facility] facility for a few days of continuous physical and occupational therapy prior to return to home. 3. We will ask director of casework department to assist with this discharge planning tomorrow. Job ID: [id number]
[2018-05-05] MEDS: Piperacillin/Tazobactam 3.375 GM in Sodium Chloride 0.9% 100 ML IVPB SCH ×4 (02:26→20:14)
[2018-05-05] MEDS: traMADol HCl 50 MG TAB PO PRN ×4 (02:26→20:18)
[2018-05-05] MEDS: Acetaminophen 500 MG TAB PO SCH ×3 (05:53→14:10)
[2018-05-05] MEDS: Enoxaparin Sodium 40 MG/0.4 ML SYRINGE SC SCH (08:31)
[2018-05-05] MEDS: Pantoprazole 40 MG VIAL IVP SCH (08:31)
[2018-05-05] MEDS: Nystatin 500,000 UNITS/5 ML UDCUP SSW SCH ×4 (08:45→20:14)
[2018-05-05 11:19] LABS: Phosphorus 2.3 mg/dL (2.3-4.7)
[2018-05-05 11:24] LABS: Anion Gap 11 mmol/L (10-20); BUN (Urea Nitrogen) 6 mg/dL (9.8-20.1); Calc. Creatinine Clearance 88 mL/min (70-130); Calcium 7.7 mg/dL (7.8-10.44); Carbon Dioxide 26 mmol/L (23-31); Chloride 103 mmol/L (98-107); Estimated GFR-MDRD Greater than 90; Glucose 128 mg/dL (80-115); Magnesium 1.3 mg/dL (1.6-2.6); Sodium 137 mmol/L (136-145)
[2018-05-05 11:35] LABS: Potassium 2.9 mmol/L (3.5-5.1)
[2018-05-05] MEDS ORDERED: Magnesium 2 GM/50 ML 2 GM in Premix Bag 1 BAG IVPB SCH (12:00)
[2018-05-05] MEDS ORDERED: Potassium Phosphate 30 MMOL in Sodium Chloride 0.9% 500 ML IVPB SCH (13:00)
[2018-05-05] MEDS ORDERED: Magnesium Sulfate 2 GM in Sodium Chloride 0.9% 100 ML IVPB SCH (13:00)
--- NOTE | 2018-05-05 19:29 | PRG ---
DATE OF SERVICE: 05/05/2018 SUBJECTIVE: This is a 63-year-old female postop day #7, status post laparotomy with low anterior resection, right oophorectomy, and liver biopsy for metastatic renal carcinoma. The patient continues to report good pain control today. States she is getting a little bit stronger with physical therapy. The patient continues to tolerate oral intake. Does continue to have occasional gas pain. The patient denies any nausea or vomiting. OBJECTIVE: VITAL SIGNS: Temperature 98.5, pulse 91, respirations 12, SpO2 of 93% on room air, blood pressure 148/89. GENERAL: The patient awake and alert, sitting up in the chair, in no distress. HEART: Regular rate and rhythm. LUNGS: Breathing is regular and nonlabored. Abdomen: Soft, nondistended. Incision is intact, clean and dry. Ostomy is viable with output of semi-formed stool and gas. NEUROLOGIC: No focal deficits noted. LABORATORY DATA Sodium 137, potassium 2.9, chloride 103, BUN 6, creatinine 0.59, estimated GFR greater than 90, glucose 128, calcium 7.7, phosphorus 2.3, magnesium 1.3. IMPRESSION: 1. Stage IV metastatic [id number] differentiated rectal adenocarcinoma. 2. Stable acute blood loss. 3. Postoperative debility. 4. Hypokalemia. PLAN: We will continue to increase activity per physical and occupational therapy. We will replace the patient's electrolytes. We will continue pain regimen and comfort measures. The patient is pending placement to [facility], for continued rehab. Most likely the patient will be discharged first thing in the morning as this is likely not to be a transfer to [facility] as the patient' s son arranged this with the facility as the patient does not have insurance. We will know tomorrow more if the patient will actually be a transfer or discharge home and to be placed at the custodial facility. The patient agrees with the plan , and the patient was examined today with Dr. Velasco. Job ID: [id number] [facility]
[2018-05-05] MEDS ORDERED: Calcium Carbonate 500 MG TAB PO SCH (19:30)
[2018-05-05] MEDS: Magnesium Oxide 400 MG TAB PO SCH (20:15)
[2018-05-06] MEDS: Acetaminophen 500 MG TAB PO SCH ×3 (01:31→12:05)
[2018-05-06] MEDS: Piperacillin/Tazobactam 3.375 GM in Sodium Chloride 0.9% 100 ML IVPB SCH (02:56)
[2018-05-06] MEDS: traMADol HCl 50 MG TAB PO PRN ×2 (05:55→12:06)
[2018-05-06 07:04] LABS: Anion Gap 9 mmol/L (10-20); BUN (Urea Nitrogen) 5 mg/dL (9.8-20.1); Calc. Creatinine Clearance 92 mL/min (70-130); Calcium 7.7 mg/dL (7.8-10.44); Carbon Dioxide 30 mmol/L (23-31); Chloride 101 mmol/L (98-107); Estimated GFR-MDRD Greater than 90; Glucose 88 mg/dL (80-115); Magnesium 1.5 mg/dL (1.6-2.6); Phosphorus 2.8 mg/dL (2.3-4.7); Potassium 3.2 mmol/L (3.5-5.1); Sodium 137 mmol/L (136-145)
[2018-05-06] MEDS ORDERED: Magnesium 2 GM/50 ML 4 GM in Premix Bag 1 BAG IVPB SCH (07:30)
[2018-05-06] MEDS ORDERED: Calcium Carbonate 500 MG TAB PO SCH (08:00)
[2018-05-06] MEDS ORDERED: Potassium Phosphate 30 MMOL, Magnesium Sulfate 4 GM in Sodium Chloride 0.9% 250 ML 250 ML IVPB SCH (08:30)
[2018-05-06] MEDS: Magnesium Oxide 400 MG TAB PO SCH (09:32)
[2018-05-06] MEDS: Nystatin 500,000 UNITS/5 ML UDCUP SSW SCH (09:32)
[2018-05-06] MEDS: Enoxaparin Sodium 40 MG/0.4 ML SYRINGE SC SCH (09:33)
[2018-05-06 15:06] VITALS: BP 144/83; TEMP 98.6
--- NOTE | 2018-05-07 04:58 | DIS ---
DATE OF ADMISSION: 04/28/2018 DATE OF DISCHARGE: 05/06/2018 ADMISSION DIAGNOSIS: Colonic perforation, status post colonoscopy. DISCHARGE DIAGNOSES: 1. Colonic perforation, status post colonoscopy. 2. Stage IV colorectal carcinoma with metastasis to the ovary, liver, and colon. 3. Septic shock, resolved. 4. Ileus, resolved. CONSULTING PHYSICIANS: 1. Dr. Toure, [employer]. 2. Dr. Rodriguez, Oncology. PROCEDURES: The patient received on April 28, ex-lap, right oophorectomy, lower anterior colorectal resection with end colostomy, wedge liver biopsy, and NG tube placement. On 04/29, she received a left subclavian central line placement. HOSPITAL COURSE: Ms. Cheng is a 63-year-old female, who presented with no past medical history for operative intervention, status post colonoscopy with a perforated colon. She received an ex-lap, right oophorectomy, lower anterior colorectal resection with end colostomy, wedge liver biopsy, and NG tube placement on April 28. The pathology was sent, which came back positive for adenocarcinoma. Dr. Toure of [employer] was consulted in the operating room for assessment of the right ovarian mass. He recommended followup with Gynecologic Oncology. After pathology reports came back, Dr. Rodriguez was consulted, who recommended followup and had no acute interventions. On postop day #0, the patient went into septic shock and subsequently was on Levo for about two days. She was eventually weaned off the pressors and moved to a regular floor. She received 7 days of Zosyn. At the time of discharge, she was tolerating a regular diet, ambulating with assistance, urinating without difficulties, and her colostomy had positive output. She was discharged to [facility]. DISCHARGE DISPOSITION: long-term facility. DISCHARGE CONDITION: Satisfactory. PHYSICAL EXAMINATION: GENERAL: Well-appearing, middle-aged female, sitting up in chair with no signs of acute distress. PULMONARY: Equal chest rise and fall. Clear breath sounds bilaterally. No significant respiratory distress. HEART: Regular rate and rhythm. No murmurs, gallops, or rubs. GASTROINTESTINAL: Abdomen is soft, nontender, nondistended. [place] in place. Wound is clean, dry, and intact. Left lower quadrant colostomy in place with brown stool in bag. EXTREMITIES: Gross motor and sensation intact times all 4 extremities. 2+ pulses in all extremities. No significant swelling noted. DISCHARGE INSTRUCTIONS: The patient was discharged to alf facility. Activity as tolerated. Regular diet. She is to work with Physical Therapy. Continue incentive spirometry and walk with a walker. DISCHARGE MEDICATIONS: Include: 1. Calcium chloride. 2. Melatonin. 3. Tramadol. 4. Tylenol. FOLLOWUP APPOINTMENTS: She is to follow up with Dr. Rodriguez with Gynecologic Oncology on May 19, 2018, at 0915. The patient was made aware of this. At the time of her evaluation by the Oncology Department, she can also follow up with her PCP, there is no followup needed with Trauma Surgery. This is merely a summary of the patient's hospitalization. For full details, please see her medical chart in its entirety. Job ID: [id number]
== END 2018-05-06 14:50 | DRG 329 ==
LOC: ERS 12:06 → SDC 13:05 → CCU 17:30 → SURG A 04-30 14:09
PROVIDERS: ADMIT Surgery; ATTEND Surgery
PROC: 0DTN0ZZ Resection of Sigmoid Colon, Open Approach (ICD-10-PCS; principal; 2018-04-28)
PROC: 0DBP0ZZ Excision of Rectum, Open Approach (ICD-10-PCS; 2018-04-28)
PROC: 0UT00ZZ Resection of Right Ovary, Open Approach (ICD-10-PCS; 2018-04-28)
PROC: 0FB00ZX Excision of Liver, Open Approach, Diagnostic (ICD-10-PCS; 2018-04-28)
PROC: 0D1M0Z4 Bypass Descending Colon to Cutaneous, Open Approach (ICD-10-PCS; 2018-04-28)
PROC: 3E033XZ Introduction of Vasopressor into Peripheral Vein, Percutaneous Approach (ICD-10-PCS; 2018-04-28)
PROC: 05H633Z Insertion of Infusion Device into Left Subclavian Vein, Percutaneous Approach (ICD-10-PCS; 2018-04-29)
PROC: B547ZZA Ultrasonography of Left Subclavian Vein, Guidance (ICD-10-PCS; 2018-04-29)
DX: C20 Malignant neoplasm of rectum (principal); K63.1 Perforation of intestine (nontraumatic); A41.9 Sepsis, unspecified organism; R65.21 Severe sepsis with septic shock; K65.8 Other peritonitis; C78.7 Secondary malignant neoplasm of liver and intrahepatic bile duct; K56.7 Ileus, unspecified; D62 Acute posthemorrhagic anemia; E87.2 Acidosis; C78.5 Secondary malignant neoplasm of large intestine and rectum; C79.61 Secondary malignant neoplasm of right ovary; C79.82 Secondary malignant neoplasm of genital organs; E87.6 Hypokalemia; E83.42 Hypomagnesemia; E83.39 Other disorders of phosphorus metabolism; Z87.891 Personal history of nicotine dependence
CPT/HCPCS: 36415; 71045; 74018; 80048; 80053; 81001; 82330; 82533; 82805; 83605; 83735; 84100; 84145; 85007; 85025; 85027; 85060; 85610; 85730; 86304; 87040; 88307; 88309; 88331; 90471; 90686; 93005; 96365; 96375; C9113; G0008; J0690; J1650; J1720; J1885; J2001; J2175; J2270; J2370; J2405; J2543; J2550; J2704; J3010; J3475; J3480; J3490; J7050; P9045; S0028

== ENCOUNTER 2018-05-30 08:26 | Outpatient (CLI) | payer OTHER ==
--- NOTE | 2018-05-30 09:35 | CT ---
FExam: Chest CT with contrast Abdomen CT with contrast Pelvic CT with contrast HISTORY: Rectal cancer. Weight loss. Examination requested for staging. Correlation: None COMPARISON: None FINDINGS: Chest CT: Mediastinum: No mass, lymphadenopathy or hematoma Aorta: Normal caliber. Heart: Normal heart size. No significant pericardial fluid Trachea and central bronchi: Trachea and central bronchi are patent Pleural spaces: No effusion. Right lung: Dependent atelectatic changes and scarring in the lower lobe. Left lun mm nodule in the superior segment of the left lower lobe. 2 mm nodule in the lingula. Sca r/atelectasis in the dependent portion of left lower lobe. Pneumothorax: None Abdomen CT: Gallbladder: Unremarkable Portal vein: Patent Liver: Multiple hypodense lesions in the hepatic parenchyma, some of which are too small to character ize. Largest lesions suggest a simple/complex hepatic cyst. Lesion measures 1.9 x 1.4 cm. There are a dditional isodense lesions which have some subtle enhancement and irregular margination. There is con cern for multifocal hepatic metastases. Largest retail sales representative lesion measures 1.3 x 1.4 cm and is lo cated in the anterior segment right hepatic lobe. Additional lesions in the posterior segment of the right hepatic lobe are noted.. Spleen: Appropriate enhancement Pancreas: Appropriate enhancement Adrenal glands: Appropriate enhancement Lymphadenopathy: No gastrohepatic, retrocrural or periportal lymphadenopathy Kidneys: Symmetric enhancement. No obstructive uropathy. Mesentery: Decreased intra-abdominal fat limits evaluation for inflammatory change. No mass, lymphade nopathy, free air or free fluid Alimentary canal: Gastric mucosa, duodenum and multiple normal caliber small bowel loops are identifi ed. There is some fluid attenuation in small bowel loops which is nonspecific. Ileocecal junction is unremarkable. Appendix is not appreciated. No inflammation at the cecal apex. Colostomy in the left l ower quadrant. Visualized colon demonstrates contrast and fecal material. There does appear to be nunu e mucosal thickening the level of the distal sigmoid colon and rectum. Suture chain is noted. Pelvis CT: No significant mass, lymphadenopathy, or free air. Trace free fluid Uterus is surgically absent Osseous structures:No lytic or blastic lesions IMPRESSION: 1. .Enhancing lesions in the hepatic parenchyma suggesting multifocal hepatic metastases. Largest le roxanne as described above. Better interrogation with PET imaging is recommended. 2. Left lower quadrant colostomy. 3. Noncalcified nodule in superior segment left lower lobe. Lesion is below imaging threshold criter ia for PET. Transcribed Date/Time: 05/30/2018 9:42 AM
[2018-05-30] MEDS ORDERED: Iopamidol 370 76% 100 ML VIAL ONE (15:06)
== END 2018-05-30 08:27 | disposition home or self-care (01) ==
LOC: CT 08:26
PROVIDERS: ATTEND Internal Medicine Hematology & Oncology
DX: C20 Malignant neoplasm of rectum (principal); K76.9 Liver disease, unspecified; Z93.3 Colostomy status; R91.1 Solitary pulmonary nodule
CPT/HCPCS: 71260; 74177; 82565; Q9967

== ENCOUNTER 2018-06-02 10:03 | Day surgery (SDC) | payer SELFPAY ==
[2018-05-30 12:24] VITALS: BMI 14.8
[2018-06-02] MEDS ORDERED: Ketorolac Tromethamine 30 MG/ML VIAL ONE (10:38)
[2018-06-02] MEDS ORDERED: Fentanyl 100 MCG/2 ML VIAL ONE (11:31)
[2018-06-02] MEDS ORDERED: Midazolam HCl 2 mg/2 ml Vial ONE (11:31)
[2018-06-02] MEDS ORDERED: Sodium Chloride 0.9% 20 ML ONE (12:02)
[2018-06-02] MEDS ORDERED: Bupivacaine/Epinephrine 0.25% 30 ML VIAL ONE ×2 (12:02→13:09)
[2018-06-02] MEDS ORDERED: Lidocaine 2% PF 5 ML VIAL ONE (12:02)
--- NOTE | 2018-06-02 13:59 | RAD ---
FExam: Chest one view HISTORY:Mediport placement Comparison: 04/29/2018 FINDINGS: Lungs: No masses or consolidation. Right chest port is present. Cardiac silhouette: Normal size Pulmonary vessels: Normal Pleural Spaces: Clear Pneumothorax: None Osseous abnormalities: None of acuity. IMPRESSION: No focal consolidation.
[2018-06-02] MEDS ORDERED: PROPOFOL 200 MG/20 ML VIAL ONE (15:17)
--- NOTE | 2018-06-02 20:46 | OP ---
DATE OF PROCEDURE: 06/02/2018 PREOPERATIVE DIAGNOSIS: Metastatic rectal carcinoma. POSTOPERATIVE DIAGNOSIS: Metastatic rectal carcinoma. PROCEDURE PERFORMED: Placement of right subclavian low-profile Port-A-Cath under fluoroscopy. ANESTHESIA: Monitored anesthesia care and local. INDICATIONS FOR PROCEDURE: A 63-year-old woman with stage IV rectal carcinoma, presents for placement of a Port-A-Cath for adjuvant chemotherapy. DESCRIPTION OF PROCEDURE: The patient was brought to the operating room for that purpose. Informed consent obtained. The patient is brought to the operating room and placed in supine position. Both chest farrar were sterilely prepped and draped in the usual fashion. Skin below the left clavicle was anesthetized with 0.25% Marcaine with epinephrine. The left subclavian vein was cannulated with an 18-gauge introducer needle, returning dark venous blood. Multiple attempts to pass a guidewire were unsuccessful. Decision was made to abandon this area and then proceeded with placement of right subclavian Port-A-Cath. Skin below the right clavicle was anesthetized with 0.25% Marcaine with epinephrine. The right subclavian vein was cannulated with an 18-gauge introducer needle, returning dark venous blood. Guidewire was passed through the needle and placed in the right subclavian vein without resistance. The needle was withdrawn over the guidewire. A stab incision was made adjacent to the guidewire using an 11 scalpel. A dilator was passed over the guidewire and dilated the subcutaneous tissues. The dilator was then assembled with an introducer catheter sheath as a unit, passing this over the guidewire and advanced into the right subclavian vein without resistance. Proper placement of the wire and introducer sheath was confirmed by fluoroscopy. Guidewire and dilator were removed as a unit. Catheter was advanced through the introducer sheath and advanced into the right subclavian vein without resistance. Proper position of the tip of the catheter was confirmed by fluoroscopy. I then anesthetized the area, chosen for the placement of the well. An oblique incision was made here using a 15 scalpel. The subcutaneous pocket was raised with good hemostasis using cautery. The catheter was then tunneled into the subcutaneous pocket and was fashioned to length. This was then connected to the Port-A-Cath well. The well was imbedded into the subcutaneous pocket, securing this to the anterior chest wall using interrupted sutures of 3-0 nylon. Dark venous blood was aspirated from the port, which was flushed first with saline followed by heparin. Subcutaneous tissue was approximated over the well using interrupted sutures of 3-0 Vicryl. Skin incision was closed using a running stitch of 4-0 Monocryl suture in a subcuticular fashion. Dermabond was applied over incisional closures. The patient tolerated the operation without any apparent complication. Portable chest x-ray was obtained, confirming proper placement and no pneumothorax present. Estimated blood loss was noted at 10 mL. Job ID: [id number]
== END 2018-06-02 14:22 | disposition home or self-care (01) ==
LOC: SDC 10:03
PROVIDERS: ATTEND Surgery
PROC: 0JH63WZ Insertion of Totally Implantable Vascular Access Device into Chest Subcutaneous Tissue and Fascia, Percutaneous Approach (ICD-10-PCS; principal; 2018-06-02)
DX: C19 Malignant neoplasm of rectosigmoid junction (principal); Z88.8 Allergy status to other drugs, medicaments and biological substances; Z93.3 Colostomy status
CPT/HCPCS: 71045; C1788; J1642; J1885; J2001; J2250; J3010

== ENCOUNTER 2018-07-07 10:30 | Day surgery (SDC) | payer OTHER, SELFPAY ==
[2018-07-07] MEDS ORDERED: DEXAMETHASONE SOD PHOSPHATE IVPB SCH ×2 (11:15→11:30)
[2018-07-07] MEDS ORDERED: SODIUM CHLORIDE 0.9% IVPB SCH (11:15)
[2018-07-07] MEDS ORDERED: Ondansetron HCl/PF 15 MG in Sodium Chloride 0.9% 50 ML IVPB SCH (11:15)
[2018-07-07] MEDS ORDERED: OXALIPLATIN IVPB SCH (11:30)
[2018-07-07] MEDS ORDERED: Leucovorin Calcium 50 MG in Dextrose 5% in Water 50 ML IVPB SCH (11:30)
[2018-07-07] MEDS ORDERED: FLUOROURACIL IVPB SCH (11:30)
[2018-07-07] MEDS ORDERED: [UNRECOGNIZED DRUG - OTHER] IVPB SCH (11:30)
[2018-07-07] MEDS ORDERED: WATER IVPB SCH ×2 (11:30)
[2018-07-07] MEDS ORDERED: ONDANSETRON HCL IVPB SCH (11:30)
[2018-07-07] MEDS ORDERED: DEXTROSE 5% IVPB SCH ×2 (11:30)
[2018-07-07 11:48] VITALS: BP 102/64; TEMP 97.8
== END 2018-07-07 15:42 | disposition home or self-care (01) ==
LOC: ONC/OP 10:30
PROVIDERS: ATTEND Internal Medicine Hematology & Oncology
DX: Z51.11 Encounter for antineoplastic chemotherapy (principal); C20 Malignant neoplasm of rectum; Z88.8 Allergy status to other drugs, medicaments and biological substances
CPT/HCPCS: 96366; 96375; 96413; 96415; 96417; J0640; J1100; J2405; J7050; J7070; J9190; J9263

== ENCOUNTER 2018-07-28 10:06 | Day surgery (SDC) | payer OTHER ==
[~2018-07-28 10:06] MED LIST: ADMIXTURE FEE IVPB SCH; CETUXIMAB IVPB SCH; DEXAMETHASONE SOD PHOSPHATE IVPB SCH; DEXTROSE 5% IVPB SCH; FLUOROURACIL IVPB SCH; Leucovorin Calcium 50 MG in Dextrose 5% in Water 50 ML IVPB SCH; ONDANSETRON HCL IVPB SCH; OXALIPLATIN IVPB SCH; WATER IVPB SCH; [UNRECOGNIZED DRUG - OTHER] IVPB SCH; diphenhydrAMINE 50 MG in Sodium Chloride 0.9% 50 ML IVPB SCH
[2018-07-28 11:37] VITALS: BP 174/99; TEMP 98.6
== END 2018-07-28 16:12 | disposition home or self-care (01) ==
LOC: ONC/OP 10:06
PROVIDERS: ATTEND Internal Medicine Hematology & Oncology
DX: Z51.11 Encounter for antineoplastic chemotherapy (principal); C20 Malignant neoplasm of rectum; Z88.8 Allergy status to other drugs, medicaments and biological substances
CPT/HCPCS: 96367; 96375; 96413; 96415; 96417; J0640; J1100; J1200; J2405; J7050; J7070; J9055; J9190; J9263

== ENCOUNTER 2018-07-31 13:46 | Day surgery (SDC) | payer OTHER ==
[~2018-07-31 13:46] MED LIST changes: -ADMIXTURE FEE IVPB SCH; -CETUXIMAB IVPB SCH; -DEXAMETHASONE SOD PHOSPHATE IVPB SCH; -DEXTROSE 5% IVPB SCH; -FLUOROURACIL IVPB SCH; -Leucovorin Calcium 50 MG in Dextrose 5% in Water 50 ML IVPB SCH; -ONDANSETRON HCL IVPB SCH; -OXALIPLATIN IVPB SCH; +PEGFILGRASTIM-JMDB 6 MG/0.6 ML SYRINGE SQ SCH; -WATER IVPB SCH; -[UNRECOGNIZED DRUG - OTHER] IVPB SCH; -diphenhydrAMINE 50 MG in Sodium Chloride 0.9% 50 ML IVPB SCH
== END 2018-07-31 15:06 | disposition home or self-care (01) ==
LOC: ONC/OP 13:46
PROVIDERS: ATTEND Internal Medicine Hematology & Oncology
DX: Z51.11 Encounter for antineoplastic chemotherapy (principal); C20 Malignant neoplasm of rectum
CPT/HCPCS: 96372; Q5108

== ENCOUNTER 2018-08-04 09:01 | Day surgery (SDC) | payer OTHER ==
[~2018-08-04 09:01] MED LIST changes: +ADMIXTURE FEE CHEMO IVPB SCH; +CETUXIMAB IVPB SCH; -PEGFILGRASTIM-JMDB 6 MG/0.6 ML SYRINGE SQ SCH; +diphenhydrAMINE 25 MG in Sodium Chloride 0.9% 50 ML IVPB SCH
[2018-08-04] MEDS ORDERED: Sodium Chloride 0.9% 20 ML ONE (09:21)
[2018-08-04 12:15] VITALS: BP 102/68; TEMP 97.8
== END 2018-08-04 12:18 | disposition home or self-care (01) ==
LOC: ONC/OP 09:01
PROVIDERS: ATTEND Internal Medicine Hematology & Oncology
DX: Z51.11 Encounter for antineoplastic chemotherapy (principal); C20 Malignant neoplasm of rectum; Z88.6 Allergy status to analgesic agent; Z79.899 Other long term (current) drug therapy
CPT/HCPCS: 96367; 96413; J1200; J1642; J7050; J9055

== ENCOUNTER 2018-08-11 10:41 | Day surgery (SDC) | payer OTHER ==
[~2018-08-11 10:41] MED LIST changes: +DEXAMETHASONE SOD PHOSPHATE IVPB SCH; +DEXTROSE 5% IVPB SCH; +FLUOROURACIL IVPB SCH; +Leucovorin Calcium 50 MG in Dextrose 5% in Water 50 ML IVPB SCH; +ONDANSETRON IVPB SCH; +OXALIPLATIN IVPB SCH; +WATER IVPB SCH; +[UNRECOGNIZED DRUG - OTHER] IVPB SCH
[2018-08-11 11:14] VITALS: BP 88/50; TEMP 98.1
== END 2018-08-11 15:51 | disposition home or self-care (01) ==
LOC: ONC/OP 10:41
PROVIDERS: ATTEND Internal Medicine Hematology & Oncology
DX: Z51.11 Encounter for antineoplastic chemotherapy (principal); C20 Malignant neoplasm of rectum
CPT/HCPCS: 96367; 96375; 96413; 96415; 96416; 96417; J0640; J1100; J1200; J2405; J7050; J7070; J9055; J9190; J9263

== ENCOUNTER 2018-08-18 09:47 | Day surgery (SDC) | payer OTHER ==
[~2018-08-18 09:47] MED LIST changes: -DEXAMETHASONE SOD PHOSPHATE IVPB SCH; -DEXTROSE 5% IVPB SCH; -FLUOROURACIL IVPB SCH; -Leucovorin Calcium 50 MG in Dextrose 5% in Water 50 ML IVPB SCH; -ONDANSETRON IVPB SCH; -OXALIPLATIN IVPB SCH; -WATER IVPB SCH; -[UNRECOGNIZED DRUG - OTHER] IVPB SCH
[2018-08-18] MEDS ORDERED: Sodium Chloride 0.9% 20 ML ONE (09:57)
[2018-08-18 14:13] VITALS: BP 128/87; TEMP 97.6
== END 2018-08-18 17:03 | disposition home or self-care (01) ==
LOC: ONC/OP 09:47
PROVIDERS: ATTEND Internal Medicine Hematology & Oncology
DX: Z51.11 Encounter for antineoplastic chemotherapy (principal); C20 Malignant neoplasm of rectum; Z88.6 Allergy status to analgesic agent
CPT/HCPCS: 96375; 96413; J1200; J1642; J9055

== ENCOUNTER 2018-08-25 10:05 | Day surgery (SDC) | payer OTHER ==
[~2018-08-25 10:05] MED LIST changes: -ADMIXTURE FEE CHEMO IVPB SCH; +ADMIXTURE FEE IVPB SCH; +DEXAMETHASONE SOD PHOSPHATE IVPB SCH; +DEXTROSE 5% IVPB SCH; +FLUOROURACIL IVPB SCH; +Leucovorin Calcium 50 MG in Dextrose 5% in Water 50 ML IVPB SCH; +ONDANSETRON HCL IVPB SCH; +OXALIPLATIN IVPB SCH; +WATER IVPB SCH; +[UNRECOGNIZED DRUG - OTHER] IVPB SCH
[2018-08-25] MEDS ORDERED: Sodium Chloride 0.9% 20 ML ONE (10:12)
[2018-08-25 11:59] VITALS: BP 96/60; TEMP 97.7
== END 2018-08-25 16:31 | disposition home or self-care (01) ==
LOC: ONC/OP 10:05
PROVIDERS: ATTEND Internal Medicine Hematology & Oncology
DX: Z51.11 Encounter for antineoplastic chemotherapy (principal); C20 Malignant neoplasm of rectum
CPT/HCPCS: 96367; 96375; 96413; 96415; 96416; 96417; J0640; J1100; J1200; J2405; J7070; J9055; J9190; J9263

== ENCOUNTER 2018-09-01 09:36 | Day surgery (SDC) | payer OTHER ==
[~2018-09-01 09:36] MED LIST changes: -DEXAMETHASONE SOD PHOSPHATE IVPB SCH; -DEXTROSE 5% IVPB SCH; -FLUOROURACIL IVPB SCH; -Leucovorin Calcium 50 MG in Dextrose 5% in Water 50 ML IVPB SCH; -ONDANSETRON HCL IVPB SCH; -OXALIPLATIN IVPB SCH; -WATER IVPB SCH; -[UNRECOGNIZED DRUG - OTHER] IVPB SCH; +diphenhydrAMINE 50 MG in Sodium Chloride 0.9% 50 ML IVPB SCH
[2018-09-01] MEDS ORDERED: Sodium Chloride 0.9% 20 ML ONE (09:46)
[2018-09-01 10:18] VITALS: BP 141/60; TEMP 97.7
== END 2018-09-01 12:29 | disposition home or self-care (01) ==
LOC: ONC/OP 09:36
PROVIDERS: ATTEND Internal Medicine Hematology & Oncology
DX: Z51.12 Encounter for antineoplastic immunotherapy (principal); C20 Malignant neoplasm of rectum; Z88.8 Allergy status to other drugs, medicaments and biological substances
CPT/HCPCS: 96375; 96413; J1200; J1642; J9055

== ENCOUNTER 2018-09-08 10:00 | Day surgery (SDC) | payer OTHER ==
[~2018-09-08 10:00] MED LIST changes: +DEXAMETHASONE SOD PHOSPHATE IVPB SCH; +DEXTROSE 5% IVPB SCH; +FLUOROURACIL IVPB SCH; +Leucovorin Calcium 50 MG in Dextrose 5% in Water 50 ML IVPB SCH; +ONDANSETRON HCL IVPB SCH; +OXALIPLATIN IVPB SCH; +Ondansetron 2MG/ML MDV 15 MG in Sodium Chloride 0.9% 50 ML IVP SCH; +WATER IVPB SCH; +[UNRECOGNIZED DRUG - OTHER] IVPB SCH; -diphenhydrAMINE 50 MG in Sodium Chloride 0.9% 50 ML IVPB SCH
[2018-09-08] MEDS ORDERED: Sodium Chloride 0.9% 20 ML ONE (10:02)
[2018-09-08 11:19] VITALS: BP 101/65; TEMP 98.5
== END 2018-09-08 16:22 | disposition home or self-care (01) ==
LOC: ONC/OP 10:00
PROVIDERS: ATTEND Internal Medicine Hematology & Oncology
DX: Z51.11 Encounter for antineoplastic chemotherapy (principal); C20 Malignant neoplasm of rectum; Z88.6 Allergy status to analgesic agent
CPT/HCPCS: 96375; 96413; 96415; 96417; J0640; J1100; J1200; J1642; J2405; J7070; J9055; J9190; J9263

== ENCOUNTER 2018-09-15 09:18 | Day surgery (SDC) | payer OTHER ==
[~2018-09-15 09:18] MED LIST changes: -DEXAMETHASONE SOD PHOSPHATE IVPB SCH; -DEXTROSE 5% IVPB SCH; -FLUOROURACIL IVPB SCH; -Leucovorin Calcium 50 MG in Dextrose 5% in Water 50 ML IVPB SCH; -ONDANSETRON HCL IVPB SCH; -OXALIPLATIN IVPB SCH; -Ondansetron 2MG/ML MDV 15 MG in Sodium Chloride 0.9% 50 ML IVP SCH; -WATER IVPB SCH; -[UNRECOGNIZED DRUG - OTHER] IVPB SCH
[2018-09-15 09:39] VITALS: BP 108/64; TEMP 97.7
[2018-09-15] MEDS ORDERED: Sodium Chloride 0.9% 20 ML ONE (10:01)
== END 2018-09-15 13:28 | disposition home or self-care (01) ==
LOC: ONC/OP 09:18
PROVIDERS: ATTEND Internal Medicine Hematology & Oncology
DX: Z51.12 Encounter for antineoplastic immunotherapy (principal); C20 Malignant neoplasm of rectum; Z88.6 Allergy status to analgesic agent
CPT/HCPCS: 96375; 96413; 96415; J1200; J1642; J9055

== ENCOUNTER 2018-09-22 11:26 | Day surgery (SDC) | payer OTHER ==
[~2018-09-22 11:26] MED LIST changes: +DEXAMETHASONE SOD PHOSPHATE IVPB SCH; +DEXTROSE 5% IVPB SCH; +FLUOROURACIL IVPB SCH; +Leucovorin Calcium 50 MG in Dextrose 5% in Water 50 ML IVPB SCH; +ONDANSETRON IVPB SCH; +OXALIPLATIN IVPB SCH; +WATER IVPB SCH; +[UNRECOGNIZED DRUG - OTHER] IVPB SCH
[2018-09-22] MEDS ORDERED: Ondansetron HCl/PF 15 MG in Sodium Chloride 0.9% 50 ML IVPB SCH (12:00)
[2018-09-22 12:04] VITALS: BP 132/79; TEMP 97.6
== END 2018-09-22 17:12 | disposition home or self-care (01) ==
LOC: ONC/OP 11:26
PROVIDERS: ATTEND Internal Medicine Hematology & Oncology
DX: Z51.12 Encounter for antineoplastic immunotherapy (principal); C20 Malignant neoplasm of rectum; Z88.8 Allergy status to other drugs, medicaments and biological substances
CPT/HCPCS: 96366; 96375; 96413; 96417; J0640; J1100; J1200; J2405; J7070; J9055; J9190; J9263

== ENCOUNTER 2018-09-26 13:04 | Outpatient (CLI) | payer OTHER ==
[2018-09-27] MEDS ORDERED: Sodium Chloride 0.9% 15 ML NEB ONE (14:35)
== END 2018-09-26 13:05 | disposition home or self-care (01) ==
LOC: WCC 13:04
PROVIDERS: ATTEND Family Medicine
DX: K94.03 Colostomy malfunction (principal)

== ENCOUNTER 2018-09-29 09:50 | Day surgery (SDC) | payer OTHER ==
[~2018-09-29 09:50] MED LIST changes: -DEXAMETHASONE SOD PHOSPHATE IVPB SCH; -DEXTROSE 5% IVPB SCH; -FLUOROURACIL IVPB SCH; -Leucovorin Calcium 50 MG in Dextrose 5% in Water 50 ML IVPB SCH; -ONDANSETRON IVPB SCH; -OXALIPLATIN IVPB SCH; -WATER IVPB SCH; -[UNRECOGNIZED DRUG - OTHER] IVPB SCH
[2018-09-29 10:12] VITALS: BP 105/69; TEMP 97.7
[2018-09-29] MEDS ORDERED: Sodium Chloride 0.9% 20 ML ONE (10:24)
== END 2018-09-29 13:04 | disposition home or self-care (01) ==
LOC: ONC/OP 09:50
PROVIDERS: ATTEND Internal Medicine Hematology & Oncology
DX: Z51.12 Encounter for antineoplastic immunotherapy (principal); C20 Malignant neoplasm of rectum
CPT/HCPCS: 96375; 96413; J1200; J1642; J9055

== ENCOUNTER 2018-10-03 09:00 | Outpatient (CLI) | payer OTHER ==
--- NOTE | 2018-10-03 10:53 | CT ---
CT chest with IV contrast CT abdomen with IV contrast CT pelvis with IV contrast: HISTORY: Rectal cancer, staging COMPARISON: 05/30/2018 FINDINGS: No mediastinal, hilar or axillary mass or lymphadenopathy seen. No pleural or pericardial effusions a re identified. The 2-3 mm parenchymal lung nodule in the lingula appears calcified. The peripheral 5 mm nodule in the superior segment of the left lower lobe is better visualized on the previous study . Multiple cysts in the liver are again seen. The heterogeneous lesions noted on the previous study dem onstrate interval improvement with some of them resolving and other smaller. No new lung masses are seen. The spleen, pancreas, adrenal glands and kidneys is stable. No free air, free fluid or lymphadenopathy seen in the abdomen or pelvis. The small bowel loops are n ot abnormally dilated. Left-sided lower quadrant colostomy is again seen There are degenerative changes in the spine. No osteolytic or osteoblastic lesions are identified. IMPRESSION: Interval improvement since 05/30/2018.
[2018-10-03] MEDS ORDERED: Iopamidol 370 76% 100 ML VIAL ONE (15:43)
== END 2018-10-03 09:01 | disposition home or self-care (01) ==
LOC: CT 09:00
PROVIDERS: ATTEND Internal Medicine Hematology & Oncology
DX: C20 Malignant neoplasm of rectum (principal)
CPT/HCPCS: 71260; 74177; Q9967

== ENCOUNTER 2018-10-06 10:42 | Day surgery (SDC) | payer OTHER ==
[~2018-10-06 10:42] MED LIST changes: +ADMIXTURE FEE CHEMO IVPB SCH; -ADMIXTURE FEE IVPB SCH; +DEXAMETHASONE IVPB SCH; +DEXTROSE 5% IVPB SCH; +FLUOROURACIL IVPB SCH; +Leucovorin Calcium 50 MG in Dextrose 5% in Water 50 ML IVPB SCH; +ONDANSETRON HCL IVPB SCH; +OXALIPLATIN IVPB SCH; +SODIUM CHLORIDE 0.9% IVPB SCH; +WATER IVPB SCH
[2018-10-06] MEDS ORDERED: Sodium Chloride 0.9% 20 ML ONE (11:05)
[2018-10-06 11:30] VITALS: BP 94/64; TEMP 97.6
== END 2018-10-06 16:34 | disposition home or self-care (01) ==
LOC: ONC/OP 10:42
PROVIDERS: ATTEND Internal Medicine Hematology & Oncology
DX: Z51.11 Encounter for antineoplastic chemotherapy (principal); C20 Malignant neoplasm of rectum; Z88.6 Allergy status to analgesic agent
CPT/HCPCS: 96366; 96375; 96413; 96415; 96416; 96417; J0640; J1100; J1200; J1642; J2405; J7070; J9055; J9190; J9263

== ENCOUNTER 2018-10-13 10:28 | Day surgery (SDC) | payer OTHER ==
[~2018-10-13 10:28] MED LIST changes: -DEXAMETHASONE IVPB SCH; -DEXTROSE 5% IVPB SCH; -FLUOROURACIL IVPB SCH; -Leucovorin Calcium 50 MG in Dextrose 5% in Water 50 ML IVPB SCH; -ONDANSETRON HCL IVPB SCH; -OXALIPLATIN IVPB SCH; -SODIUM CHLORIDE 0.9% IVPB SCH; -WATER IVPB SCH
[2018-10-13] MEDS ORDERED: Sodium Chloride 0.9% 30 ML ONE (10:35)
[2018-10-13 10:57] VITALS: BP 115/80; TEMP 97.6
== END 2018-10-13 13:13 | disposition home or self-care (01) ==
LOC: ONC/OP 10:28
PROVIDERS: ATTEND Internal Medicine Hematology & Oncology
DX: Z51.12 Encounter for antineoplastic immunotherapy (principal); C20 Malignant neoplasm of rectum; Z88.8 Allergy status to other drugs, medicaments and biological substances
CPT/HCPCS: 96375; 96413; J1200; J9055

== ENCOUNTER 2018-11-03 10:52 | Day surgery (SDC) | payer OTHER ==
[~2018-11-03 10:52] MED LIST changes: +DEXAMETHASONE SOD PHOSPHATE IVPB SCH; +DEXTROSE 5% IVPB SCH; +FLUOROURACIL IVPB SCH; +Leucovorin Calcium 50 MG in Dextrose 5% in Water 50 ML IVPB SCH; +ONDANSETRON IVPB SCH; +OXALIPLATIN IVPB SCH; +WATER IVPB SCH; +[UNRECOGNIZED DRUG - OTHER] IVPB SCH
[2018-11-03] MEDS ORDERED: Sodium Chloride 0.9% 20 ML ONE (10:55)
[2018-11-03 11:18] VITALS: BP 100/64; TEMP 97.7
== END 2018-11-03 16:40 | disposition home or self-care (01) ==
LOC: ONC/OP 10:52
PROVIDERS: ATTEND Internal Medicine Hematology & Oncology
DX: Z51.11 Encounter for antineoplastic chemotherapy (principal); C20 Malignant neoplasm of rectum; Z88.6 Allergy status to analgesic agent
CPT/HCPCS: 96368; 96375; 96413; 96415; 96417; J0640; J1100; J1200; J2405; J7070; J9055; J9190; J9263

== ENCOUNTER 2018-11-10 10:48 | Day surgery (SDC) | payer OTHER ==
[~2018-11-10 10:48] MED LIST changes: -DEXAMETHASONE SOD PHOSPHATE IVPB SCH; -DEXTROSE 5% IVPB SCH; -FLUOROURACIL IVPB SCH; -Leucovorin Calcium 50 MG in Dextrose 5% in Water 50 ML IVPB SCH; -ONDANSETRON IVPB SCH; -OXALIPLATIN IVPB SCH; -WATER IVPB SCH; -[UNRECOGNIZED DRUG - OTHER] IVPB SCH
[2018-11-10] MEDS ORDERED: Sodium Chloride 0.9% 20 ML ONE (11:02)
[2018-11-10 12:11] VITALS: BP 118/74; TEMP 98.7
== END 2018-11-10 13:08 | disposition home or self-care (01) ==
LOC: ONC/OP 10:48
PROVIDERS: ATTEND Internal Medicine Hematology & Oncology
DX: Z51.11 Encounter for antineoplastic chemotherapy (principal); C20 Malignant neoplasm of rectum
CPT/HCPCS: 96375; 96413; J1200; J1642; J9055

== ENCOUNTER 2018-11-17 11:01 | Day surgery (SDC) | payer OTHER, SELFPAY ==
[~2018-11-17 11:01] MED LIST changes: +DEXAMETHASONE SOD PHOSPHATE IVPB SCH; +DEXTROSE 5% IVPB SCH; +FLUOROURACIL IVPB SCH; +Leucovorin Calcium 50 MG in Dextrose 5% in Water 50 ML IVPB SCH; +ONDANSETRON IVPB SCH; +OXALIPLATIN IVPB SCH; +WATER IVPB SCH; +[UNRECOGNIZED DRUG - OTHER] IVPB SCH
[2018-11-17 11:30] VITALS: BP 166/81; TEMP 98
== END 2018-11-17 16:07 | disposition home or self-care (01) ==
LOC: ONC/OP 11:01
PROVIDERS: ATTEND Internal Medicine Hematology & Oncology
DX: Z51.11 Encounter for antineoplastic chemotherapy (principal); C20 Malignant neoplasm of rectum
CPT/HCPCS: 96367; 96376; 96413; 96415; 96417; J0640; J1100; J1200; J2405; J7070; J9055; J9190; J9263

== ENCOUNTER 2018-11-24 10:37 | Day surgery (SDC) | payer SELFPAY ==
[~2018-11-24 10:37] MED LIST changes: -DEXAMETHASONE SOD PHOSPHATE IVPB SCH; -DEXTROSE 5% IVPB SCH; -FLUOROURACIL IVPB SCH; -Leucovorin Calcium 50 MG in Dextrose 5% in Water 50 ML IVPB SCH; -ONDANSETRON IVPB SCH; -OXALIPLATIN IVPB SCH; -WATER IVPB SCH; -[UNRECOGNIZED DRUG - OTHER] IVPB SCH
[2018-11-24] MEDS ORDERED: Sodium Chloride 0.9% 20 ML ONE (10:51)
[2018-11-24] MEDS ORDERED: Ondansetron PF 4 MG/2 ML Vial SLOW IVP PRN (10:51)
[2018-11-24 11:04] VITALS: BP 129/95; TEMP 98.4
== END 2018-11-24 12:54 | disposition home or self-care (01) ==
LOC: ONC/OP 10:37
PROVIDERS: ATTEND Internal Medicine Hematology & Oncology
DX: Z51.11 Encounter for antineoplastic chemotherapy (principal); C20 Malignant neoplasm of rectum; Z88.0 Allergy status to penicillin
CPT/HCPCS: 96375; 96413; J1200; J1642; J2405; J9055

== ENCOUNTER 2018-12-01 10:05 | Day surgery (SDC) | payer OTHER, SELFPAY ==
[2018-12-01] MEDS ORDERED: DEXTROSE 5% IVPB SCH ×3 (10:15→10:30)
[2018-12-01] MEDS ORDERED: WATER IVPB SCH ×3 (10:15→10:30)
[2018-12-01] MEDS ORDERED: SODIUM CHLORIDE 0.9% IVPB SCH (10:15)
[2018-12-01] MEDS ORDERED: OXALIPLATIN IVPB SCH ×2 (10:15→10:30)
[2018-12-01] MEDS ORDERED: ONDANSETRON IVPB SCH (10:15)
[2018-12-01] MEDS ORDERED: Leucovorin Calcium 50 MG in Dextrose 5% in Water 50 ML IVPB SCH (10:15)
[2018-12-01] MEDS ORDERED: DEXAMETHASONE IVPB SCH (10:15)
[2018-12-01] MEDS ORDERED: Sodium Chloride 0.9% 30 ML ONE (10:21)
[2018-12-01] MEDS ORDERED: ADMIXTURE FEE IVPB SCH ×2 (10:30→10:45)
[2018-12-01] MEDS ORDERED: FLUOROURACIL IVPB SCH (10:30)
[2018-12-01] MEDS ORDERED: diphenhydrAMINE 50 MG/ML VIAL IVP SCH (10:30)
[2018-12-01] MEDS ORDERED: CETUXIMAB IVPB SCH ×2 (10:30→10:45)
[2018-12-01 10:37] VITALS: BP 108/68; TEMP 98.4
== END 2018-12-01 16:16 | disposition home or self-care (01) ==
LOC: ONC/OP 10:05
PROVIDERS: ATTEND Internal Medicine Hematology & Oncology
DX: Z51.11 Encounter for antineoplastic chemotherapy (principal); C20 Malignant neoplasm of rectum; Z88.6 Allergy status to analgesic agent
CPT/HCPCS: 96367; 96375; 96413; 96415; 96416; 96417; J0640; J1100; J1200; J2405; J7070; J9055; J9190; J9263

== ENCOUNTER 2018-12-08 09:50 | Day surgery (SDC) | payer OTHER, SELFPAY ==
[~2018-12-08 09:50] MED LIST changes: -ADMIXTURE FEE CHEMO IVPB SCH; +ADMIXTURE FEE IVPB SCH; +diphenhydrAMINE 50 MG/ML VIAL IVP SCH
[2018-12-08 10:13] VITALS: BP 128/85; TEMP 97.5
[2018-12-08] MEDS ORDERED: Sodium Chloride 0.9% 20 ML ONE (12:49)
== END 2018-12-08 15:13 | disposition home or self-care (01) ==
LOC: ONC/OP 09:50
PROVIDERS: ATTEND Internal Medicine Hematology & Oncology
DX: Z51.11 Encounter for antineoplastic chemotherapy (principal); C20 Malignant neoplasm of rectum
CPT/HCPCS: 96375; 96413; J1200; J1642; J9055

== ENCOUNTER 2018-12-22 10:37 | Day surgery (SDC) | payer OTHER ==
[~2018-12-22 10:37] MED LIST changes: +DEXAMETHASONE IVPB SCH; +DEXTROSE 5% IVPB SCH; +FLUOROURACIL IVPB SCH; +Leucovorin Calcium 50 MG in Dextrose 5% in Water 50 ML IVPB SCH; +ONDANSETRON IVPB SCH; +OXALIPLATIN IVPB SCH; +SODIUM CHLORIDE 0.9% IVPB SCH; +WATER IVPB SCH; -diphenhydrAMINE 50 MG/ML VIAL IVP SCH
[2018-12-22 10:56] VITALS: BP 129/81; TEMP 97.8
== END 2018-12-22 16:23 | disposition home or self-care (01) ==
LOC: ONC/OP 10:37
PROVIDERS: ATTEND Internal Medicine Hematology & Oncology
DX: Z51.11 Encounter for antineoplastic chemotherapy (principal); C20 Malignant neoplasm of rectum; Z88.6 Allergy status to analgesic agent
CPT/HCPCS: 96367; 96375; 96413; 96416; 96417; J0640; J1100; J1200; J2405; J7070; J9055; J9190; J9263

== ENCOUNTER 2019-01-01 08:27 | Outpatient (CLI) | payer OTHER ==
--- NOTE | 2019-01-01 13:59 | CT ---
Exam: Chest, abdomen, and pelvic CT scan with IV contrast: HISTORY: Malignant neoplasm of rectum, colon cancer COMPARISON: 10/03/2018 FINDINGS: Persistent linear parenchymal changes are noted in the lower lungs evidence for chronic change or sub segmental atelectasis. No mediastinal mass or adenopathy. No pleural effusion or pericardial effusion. Stable left lingular pulmonary nodule. The previously noted nodule in the left lower lobe i s very poorly seen on today's study. Multiple circumscribed stable low-attenuation foci within the right left lobes the liver, evidence fo r liver cysts. Gallstone in the dependent portion of the gallbladder without evidence for acute cholecystitis. No co mmon duct dilatation. Visualized pancreas, spleen, adrenal glands are unremarkable. No adenopathy or abscess or abnormal fluid collection. No renal calculus or acute obstruction. Left side anterio r colostomy IMPRESSION: Stable liver cysts. Gallstone without acute cholecystitis. No evidence for new metastatic disease or other significant acute process.
== END 2019-01-01 08:28 | disposition home or self-care (01) ==
LOC: BICCT 08:27
PROVIDERS: ATTEND Internal Medicine Hematology & Oncology
DX: C18.9 Malignant neoplasm of colon, unspecified (principal); C20 Malignant neoplasm of rectum; K76.89 Other specified diseases of liver; K80.80 Other cholelithiasis without obstruction
CPT/HCPCS: 71260; 74177

== ENCOUNTER 2019-01-05 09:54 | Day surgery (SDC) | payer OTHER ==
[~2019-01-05 09:54] MED LIST changes: +ADMIXTURE FEE CHEMO IVPB SCH; -ADMIXTURE FEE IVPB SCH; -DEXAMETHASONE IVPB SCH; -DEXTROSE 5% IVPB SCH; -FLUOROURACIL IVPB SCH; -Leucovorin Calcium 50 MG in Dextrose 5% in Water 50 ML IVPB SCH; -ONDANSETRON IVPB SCH; -OXALIPLATIN IVPB SCH; -SODIUM CHLORIDE 0.9% IVPB SCH; -WATER IVPB SCH
[2019-01-05] MEDS ORDERED: Sodium Chloride 0.9% 20 ML ONE (10:09)
[2019-01-05 10:10] VITALS: BP 130/91; TEMP 97.8
[2019-01-05] MEDS ORDERED: SODIUM CHLORIDE 0.9% IVPB SCH (10:15)
[2019-01-05] MEDS ORDERED: FLUOROURACIL IVPB SCH (10:15)
[2019-01-05] MEDS ORDERED: Leucovorin Calcium 50 MG in Dextrose 5% in Water 50 ML IVPB SCH (10:15)
[2019-01-05] MEDS ORDERED: DEXAMETHASONE IVPB SCH (10:15)
[2019-01-05] MEDS ORDERED: ONDANSETRON IVPB SCH ×2 (10:15)
[2019-01-05] MEDS ORDERED: [UNRECOGNIZED DRUG - OTHER] IVPB SCH (10:15)
[2019-01-05] MEDS ORDERED: DEXAMETHASONE SOD PHOSPHATE IVPB SCH (10:15)
[2019-01-05] MEDS ORDERED: DEXTROSE 5% IVPB SCH (10:15)
[2019-01-05] MEDS ORDERED: WATER IVPB SCH (10:15)
== END 2019-01-05 13:04 | disposition home or self-care (01) ==
LOC: ONC/OP 09:54
PROVIDERS: ATTEND Internal Medicine Hematology & Oncology
DX: Z51.11 Encounter for antineoplastic chemotherapy (principal); C20 Malignant neoplasm of rectum
CPT/HCPCS: 96367; 96375; 96413; 96417; J0640; J1100; J1200; J2405; J9055; J9190

== ENCOUNTER 2019-01-12 09:56 | Day surgery (SDC) | payer OTHER ==
[2019-01-12] MEDS ORDERED: Sodium Chloride 0.9% 20 ML ONE (10:01)
[2019-01-12 10:49] VITALS: BP 105/64; TEMP 98.3
== END 2019-01-12 13:18 | disposition home or self-care (01) ==
LOC: ONC/OP 09:56
PROVIDERS: ATTEND Internal Medicine Hematology & Oncology
DX: Z51.11 Encounter for antineoplastic chemotherapy (principal); C20 Malignant neoplasm of rectum; Z88.8 Allergy status to other drugs, medicaments and biological substances
CPT/HCPCS: 96375; 96413; J1200; J1642; J9055

== ENCOUNTER 2019-01-19 11:58 | Day surgery (SDC) | payer OTHER ==
[~2019-01-19 11:58] MED LIST changes: +DEXAMETHASONE SOD PHOSPHATE IVPB SCH; +DEXTROSE 5% IVPB SCH; +FLUOROURACIL IVPB SCH; +Leucovorin Calcium 50 MG in Dextrose 5% in Water 50 ML IVPB SCH; +ONDANSETRON IVPB SCH; +WATER IVPB SCH; +[UNRECOGNIZED DRUG - OTHER] IVPB SCH
[2019-01-19] MEDS ORDERED: Sodium Chloride 0.9% 20 ML ONE (12:01)
[2019-01-19 12:10] VITALS: BP 116/71; TEMP 98.4
== END 2019-01-19 15:39 | disposition home or self-care (01) ==
LOC: ONC/OP 11:58
PROVIDERS: ATTEND Internal Medicine Hematology & Oncology
DX: Z51.11 Encounter for antineoplastic chemotherapy (principal); C20 Malignant neoplasm of rectum; Z88.8 Allergy status to other drugs, medicaments and biological substances
CPT/HCPCS: 96367; 96375; 96413; 96416; 96417; J0640; J1100; J1200; J2405; J9055; J9190

== ENCOUNTER 2019-01-20 09:48 | Outpatient (CLI) | payer OTHER ==
--- NOTE | 2019-01-20 11:30 | RAD ---
Air-contrast barium enema HISTORY: Rectal carcinoma. Sigmoid carcinoma. Left lower quadrant ostomy. FINDINGS: Given that exam is being performed to evaluate for residual mucosal mass, barium was used instead of Gastrografin. A Gastrografin contrast exam with not well evaluate the farrar. A small amount of barium contrast was instilled into the small rectal pouch for opacification. Excess barium drained. Small amount of gas insufflation to best visualize the farrar of the rectal vault. Small amount of residual mucus material. No focal abnormalities of the rectal wall evident. Suture ro w at the surgical site at the mid rectum. Rectal pouch estimated at 7 cm length. IMPRESSION: No evidence of rectal wall mass. Rectal pouch estimated at 7 cm length.
== END 2019-01-20 09:49 | disposition home or self-care (01) ==
LOC: RAD 09:48
PROVIDERS: ATTEND Surgery
DX: Z48.815 Encounter for surgical aftercare following surgery on the digestive system (principal); Z93.3 Colostomy status
CPT/HCPCS: 74280

== ENCOUNTER 2019-01-26 08:56 | Day surgery (SDC) | payer OTHER ==
[~2019-01-26 08:56] MED LIST changes: -DEXAMETHASONE SOD PHOSPHATE IVPB SCH; -DEXTROSE 5% IVPB SCH; -FLUOROURACIL IVPB SCH; -Leucovorin Calcium 50 MG in Dextrose 5% in Water 50 ML IVPB SCH; -ONDANSETRON IVPB SCH; -WATER IVPB SCH; -[UNRECOGNIZED DRUG - OTHER] IVPB SCH
[2019-01-26] MEDS ORDERED: Sodium Chloride 0.9% 20 ML ONE (09:05)
[2019-01-26 09:28] VITALS: BP 112/71; TEMP 98
== END 2019-01-26 12:32 | disposition home or self-care (01) ==
LOC: ONC/OP 08:56
PROVIDERS: ATTEND Internal Medicine Hematology & Oncology
DX: Z51.11 Encounter for antineoplastic chemotherapy (principal); C20 Malignant neoplasm of rectum; Z88.8 Allergy status to other drugs, medicaments and biological substances
CPT/HCPCS: 96375; 96413; J1200; J1642; J9055

== ENCOUNTER 2019-02-06 10:30 | Day surgery (SDC) | payer OTHER ==
[~2019-02-06 10:30] MED LIST changes: +DEXAMETHASONE SOD PHOSPHATE IVPB SCH; +DEXTROSE 5% IVPB SCH; +FLUOROURACIL IVPB SCH; +Leucovorin Calcium 50 MG in Dextrose 5% in Water 50 ML IVPB SCH; +ONDANSETRON IVPB SCH; +WATER IVPB SCH; +[UNRECOGNIZED DRUG - OTHER] IVPB SCH
[2019-02-06 12:22] VITALS: BP 112/69; TEMP 98
[2019-02-06] MEDS ORDERED: Sodium Chloride 0.9% 20 ML ONE (12:27)
== END 2019-02-06 15:28 | disposition home or self-care (01) ==
LOC: ONC/OP 10:30
PROVIDERS: ATTEND Internal Medicine Hematology & Oncology
DX: Z51.11 Encounter for antineoplastic chemotherapy (principal); C20 Malignant neoplasm of rectum; Z88.6 Allergy status to analgesic agent
CPT/HCPCS: 96367; 96375; 96413; 96416; 96417; J0640; J1100; J1200; J2405; J9055; J9190

== ENCOUNTER 2019-02-10 08:44 | Day surgery (SDC) | payer OTHER ==
[2019-02-09 10:20] VITALS: BMI 17.2
[2019-02-10] MEDS ORDERED: PHENYLEPHRINE-NS 100 MCG/ML 10 ML SYRINGE ONE (10:32)
[2019-02-10] MEDS ORDERED: PROPOFOL 200 MG/20 ML VIAL ONE (10:32)
[2019-02-10] MEDS ORDERED: Sodium Chloride 0.9% 10 ML ONE (11:40)
--- NOTE | 2019-02-10 16:09 | OP ---
DATE OF PROCEDURE: 02/10/2019 PROCEDURE PERFORMED: Colonoscopy with biopsy. PREOPERATIVE DIAGNOSIS: Colon cancer status post rectosigmoid resection for perforated colon cancer, this is for completion colonoscopy. DESCRIPTION OF PROCEDURE: Informed consent was obtained from the patient. She was placed in the supine position and the colonoscope was placed through the colostomy in the left upper quadrant and advanced to the terminal ileum easily. The mucosa of the terminal ileum was normal. The ileocecal valve and appendiceal orifice were clearly identified. There were a couple of small diverticula in the descending colon just proximal to the colostomy. The remainder of the colonic mucosa was normal. The patient was turned around and the colonoscope was advanced into the rectal stump. The mucosa of the rectum was normal. The apex of the rectal stump was biopsied. There was inadequate room for retroflexion. There were moderate to large internal hemorrhoids present. IMPRESSION: 1. Mild diverticulosis of the descending colon. 2. Otherwise normal colonoscopy to the terminal ileum. 3. Internal hemorrhoids. 4. The rectal stump had clear mucosa. Biopsies were obtained from apex to the rectal stump at the level of the anastomosis. 5. Status post colostomy for rectosigmoid colon cancer. Margins were previously noted to be positive at the proximal and distal sites of the resected specimen in addition to adnexal metastases. RECOMMENDATIONS: 1. Await histopathology. 2. Repeat colonoscopy in a year. Job ID: [id number]
== END 2019-02-10 11:50 | disposition home or self-care (01) ==
LOC: SDC 08:44
PROVIDERS: ATTEND Internal Medicine Gastroenterology
PROC: 0DBP8ZX Excision of Rectum, Via Natural or Artificial Opening Endoscopic, Diagnostic (ICD-10-PCS; principal; 2019-02-10)
DX: Z08 Encounter for follow-up examination after completed treatment for malignant neoplasm (principal); K64.8 Other hemorrhoids; K57.30 Diverticulosis of large intestine without perforation or abscess without bleeding; Z85.038 Personal history of other malignant neoplasm of large intestine; Z79.2 Long term (current) use of antibiotics; Z88.8 Allergy status to other drugs, medicaments and biological substances; Z90.49 Acquired absence of other specified parts of digestive tract; Z93.3 Colostomy status
CPT/HCPCS: 88305; J1642; J2704

== ENCOUNTER 2019-02-16 09:41 | Day surgery (SDC) | payer OTHER ==
[~2019-02-16 09:41] MED LIST changes: -DEXAMETHASONE SOD PHOSPHATE IVPB SCH; -DEXTROSE 5% IVPB SCH; -FLUOROURACIL IVPB SCH; -Leucovorin Calcium 50 MG in Dextrose 5% in Water 50 ML IVPB SCH; -ONDANSETRON IVPB SCH; -WATER IVPB SCH; -[UNRECOGNIZED DRUG - OTHER] IVPB SCH
[2019-02-16] MEDS ORDERED: Sodium Chloride 0.9% 30 ML ONE (09:57)
[2019-02-16 12:40] VITALS: BP 108/63; TEMP 98
== END 2019-02-16 12:41 | disposition home or self-care (01) ==
LOC: ONC/OP 09:41
PROVIDERS: ATTEND Internal Medicine Hematology & Oncology
DX: Z51.12 Encounter for antineoplastic immunotherapy (principal); C20 Malignant neoplasm of rectum; Z88.6 Allergy status to analgesic agent
CPT/HCPCS: 96375; 96413; J1200; J1642; J9055

== ENCOUNTER → 2019-02-23 | Day surgery (SDC) | payer OTHER ==
[~2019-02-23] MED LIST changes: -ADMIXTURE FEE CHEMO IVPB SCH; -CETUXIMAB IVPB SCH; +DEXAMETHASONE SOD PHOSPHATE IVPB SCH; +Leucovorin Calcium 50 MG in Dextrose 5% in Water 50 ML IVPB SCH; +ONDANSETRON IVPB SCH; +Sodium Chloride 0.9% 20 ML ONE; +[UNRECOGNIZED DRUG - OTHER] IVPB SCH
[2019-02-23 10:07] VITALS: BP 119/75; TEMP 98.5
[2019-02-23] MEDS: WATER IVPB SCH ×2 (11:14→11:28)
[2019-02-23] MEDS: FLUOROURACIL IVPB SCH ×2 (11:14→11:28)
[2019-02-23] MEDS: DEXTROSE 5% IVPB SCH ×2 (11:14→11:28)
[2019-02-23] MEDS: CETUXIMAB IVPB SCH ×2 (11:15→11:27)
[2019-02-23] MEDS: ADMIXTURE FEE CHEMO IVPB SCH ×2 (11:15→11:27)
== END ==
LOC: ONC/OP 09:40
PROVIDERS: ATTEND Internal Medicine Hematology & Oncology
DX: Z51.11 Encounter for antineoplastic chemotherapy (principal); C20 Malignant neoplasm of rectum; Z88.6 Allergy status to analgesic agent
CPT/HCPCS: 96366; 96375; 96413; 96417; J0640; J1100; J1200; J2405; J9055; J9190

== ENCOUNTER 2019-03-02 10:20 | Day surgery (SDC) | payer OTHER ==
[~2019-03-02 10:20] MED LIST changes: +ADMIXTURE FEE CHEMO IVPB SCH; +CETUXIMAB IVPB SCH; -DEXAMETHASONE SOD PHOSPHATE IVPB SCH; -Leucovorin Calcium 50 MG in Dextrose 5% in Water 50 ML IVPB SCH; -ONDANSETRON IVPB SCH; -Sodium Chloride 0.9% 20 ML ONE; -[UNRECOGNIZED DRUG - OTHER] IVPB SCH
[2019-03-02] MEDS ORDERED: Sodium Chloride 0.9% 20 ML ONE (10:34)
[2019-03-02 12:36] VITALS: BP 119/71; TEMP 98.3
== END 2019-03-02 12:38 | disposition home or self-care (01) ==
LOC: ONC/OP 10:20
PROVIDERS: ATTEND Internal Medicine Hematology & Oncology
DX: Z51.11 Encounter for antineoplastic chemotherapy (principal); C20 Malignant neoplasm of rectum; Z88.6 Allergy status to analgesic agent
CPT/HCPCS: 96375; 96413; J1200; J1642; J9055

== ENCOUNTER 2019-03-09 09:48 | Day surgery (SDC) | payer OTHER ==
[~2019-03-09 09:48] MED LIST changes: +DEXAMETHASONE SOD PHOSPHATE IVPB SCH; +DEXTROSE 5% IVPB SCH; +FLUOROURACIL IVPB SCH; +Leucovorin Calcium 50 MG in Dextrose 5% in Water 50 ML IVPB SCH; +ONDANSETRON IVPB SCH; +WATER IVPB SCH; +[UNRECOGNIZED DRUG - OTHER] IVPB SCH
[2019-03-09 10:02] VITALS: BP 121/73; TEMP 98.1
[2019-03-09] MEDS ORDERED: Sodium Chloride 0.9% 20 ML ONE (10:06)
== END 2019-03-09 14:17 | disposition home or self-care (01) ==
LOC: ONC/OP 09:48
PROVIDERS: ATTEND Internal Medicine Hematology & Oncology
DX: Z51.11 Encounter for antineoplastic chemotherapy (principal); C20 Malignant neoplasm of rectum; Z88.8 Allergy status to other drugs, medicaments and biological substances
CPT/HCPCS: 96366; 96375; 96413; 96416; 96417; J0640; J1100; J1200; J1642; J2405; J9055; J9190

== ENCOUNTER 2019-03-16 08:36 | Day surgery (SDC) | payer OTHER ==
[~2019-03-16 08:36] MED LIST changes: -DEXAMETHASONE SOD PHOSPHATE IVPB SCH; -DEXTROSE 5% IVPB SCH; -FLUOROURACIL IVPB SCH; -Leucovorin Calcium 50 MG in Dextrose 5% in Water 50 ML IVPB SCH; -ONDANSETRON IVPB SCH; -WATER IVPB SCH; -[UNRECOGNIZED DRUG - OTHER] IVPB SCH
[2019-03-16 10:35] VITALS: BP 108/60; TEMP 98.3
== END 2019-03-16 11:14 | disposition home or self-care (01) ==
LOC: ONC/OP 08:36
PROVIDERS: ATTEND Internal Medicine Hematology & Oncology
DX: Z51.11 Encounter for antineoplastic chemotherapy (principal); C20 Malignant neoplasm of rectum; Z88.6 Allergy status to analgesic agent
CPT/HCPCS: 96375; 96413; J1200; J1642; J9055

== ENCOUNTER 2019-03-23 09:54 | Day surgery (SDC) | payer OTHER ==
[~2019-03-23 09:54] MED LIST changes: -ADMIXTURE FEE CHEMO IVPB SCH; -CETUXIMAB IVPB SCH; +DEXAMETHASONE SOD PHOSPHATE IVPB SCH; +DEXTROSE 5% IVPB SCH; +FLUOROURACIL IVPB SCH; +Leucovorin Calcium 50 MG in Dextrose 5% in Water 50 ML IVPB SCH; +ONDANSETRON IVPB SCH; +WATER IVPB SCH; +[UNRECOGNIZED DRUG - OTHER] IVPB SCH; -diphenhydrAMINE 25 MG in Sodium Chloride 0.9% 50 ML IVPB SCH
[2019-03-23] MEDS ORDERED: Sodium Chloride 0.9% 20 ML ONE (10:08)
[2019-03-23] MEDS ORDERED: ADMIXTURE FEE CHEMO IVPB SCH (10:45)
[2019-03-23] MEDS ORDERED: diphenhydrAMINE 25 MG in Sodium Chloride 0.9% 50 ML IVPB SCH (10:45)
[2019-03-23] MEDS ORDERED: diphenhydrAMINE 50 MG in Sodium Chloride 0.9% 50 ML IVPB SCH (10:45)
[2019-03-23] MEDS ORDERED: CETUXIMAB IVPB SCH (10:45)
[2019-03-23 14:28] VITALS: BP 130/84; TEMP 98.2
== END 2019-03-23 14:34 | disposition home or self-care (01) ==
LOC: ONC/OP 09:54
PROVIDERS: ATTEND Internal Medicine Hematology & Oncology
DX: Z51.11 Encounter for antineoplastic chemotherapy (principal); C20 Malignant neoplasm of rectum; Z88.6 Allergy status to analgesic agent
CPT/HCPCS: 96366; 96375; 96413; 96416; 96417; J0640; J1100; J1200; J2405; J9055; J9190

== ENCOUNTER 2019-03-30 09:13 | Day surgery (SDC) | payer OTHER ==
[~2019-03-30 09:13] MED LIST changes: +ADMIXTURE FEE CHEMO IVPB SCH; +CETUXIMAB IVPB SCH; -DEXAMETHASONE SOD PHOSPHATE IVPB SCH; -DEXTROSE 5% IVPB SCH; -FLUOROURACIL IVPB SCH; -Leucovorin Calcium 50 MG in Dextrose 5% in Water 50 ML IVPB SCH; -ONDANSETRON IVPB SCH; -WATER IVPB SCH; -[UNRECOGNIZED DRUG - OTHER] IVPB SCH; +diphenhydrAMINE 25 MG in Sodium Chloride 0.9% 50 ML IVPB SCH
[2019-03-30] MEDS ORDERED: Sodium Chloride 0.9% 20 ML ONE (09:14)
[2019-03-30 09:57] VITALS: BP 128/75; TEMP 97.9
== END 2019-03-30 13:36 | disposition home or self-care (01) ==
LOC: ONC/OP 09:13
PROVIDERS: ATTEND Internal Medicine Hematology & Oncology
DX: Z51.12 Encounter for antineoplastic immunotherapy (principal); C20 Malignant neoplasm of rectum; Z88.6 Allergy status to analgesic agent
CPT/HCPCS: 96365; 96375; J1200; J1642; J9055

== ENCOUNTER 2019-04-13 10:20 | Day surgery (SDC) | payer OTHER ==
[~2019-04-13 10:20] MED LIST changes: +DEXAMETHASONE SOD PHOSPHATE IVPB SCH; +DEXTROSE 5% IVPB SCH; +FLUOROURACIL IVPB SCH; +Leucovorin Calcium 50 MG in Dextrose 5% in Water 50 ML IVPB SCH; +ONDANSETRON IVPB SCH; +Sodium Chloride 0.9% 20 ML ONE; +WATER IVPB SCH; +[UNRECOGNIZED DRUG - OTHER] IVPB SCH
[2019-04-13 10:41] VITALS: BP 107/73; TEMP 98.6
== END 2019-04-13 14:35 | disposition home or self-care (01) ==
LOC: ONC/OP 10:20
PROVIDERS: ATTEND Internal Medicine Hematology & Oncology
DX: Z51.12 Encounter for antineoplastic immunotherapy (principal); C20 Malignant neoplasm of rectum; Z88.8 Allergy status to other drugs, medicaments and biological substances
CPT/HCPCS: 96367; 96413; 96415; 96416; 96417; J0640; J1100; J1200; J1642; J2405; J9055; J9190

== ENCOUNTER 2019-04-17 08:39 | Outpatient (CLI) | payer BC ==
--- NOTE | 2019-04-17 09:38 | CT ---
Exam: Chest CT with contrast Abdomen CT with contrast Pelvic CT with contrast HISTORY: Rectal cancer, in remission. Patient is undergoing chemotherapy. Evaluate for response to th erapy. Correlation: None COMPARISON: 01/01/2019, 10/03/2018 FINDINGS: Chest CT: Mediastinum: No mass, lymphadenopathy or hematoma. Aorta: Normal caliber aorta. No periaortic fat stranding. Heart: Normal heart size. No significant pericardial fluid. Trachea and central bronchi: Patent Pleural spaces: No pleural effusion Right lung: Dependent atelectatic changes and scarring. Emphysematous changes are noted. No consolida tion. Mild thickening of the major fissure. No suspicious masses or nodules. Left lung:Dependent atelectatic changes. Emphysematous changes are noted. Calcified granuloma in the left upper lobe. No suspicious masses or nodules. No consolidation. Pneumothorax: None Abdomen CT: Gallbladder: Cholelithiasis, without evidence of cholecystitisPortal vein: Patent Liver: Redemonstration of multiple hypodensities scattered throughout the hepatic parenchyma. No enha ncing masses within the liver.. Spleen: Appropriate enhancement Pancreas: Appropriate enhancement Adrenal glands: Appropriate enhancement Lymphadenopathy: No gastrohepatic, retrocrural or periportal lymphadenopathy Kidneys: Symmetric enhancement. No obstructive uropathy. Mesentery: No mass, lymphadenopathy, free air or free fluid Alimentary canal: Gastric mucosa, duodenum and multiple normal caliber small bowel loops. Ileocecal j unction is unremarkable. Appendix is not appreciated. No inflammation at the cecal apex. There is contrast and fecal material in a nondistended, nondilated colon. Left lower quadrant colostomy is weston ntified. Pelvis CT: Surgically absent uterus. No pelvic mass, lymphadenopathy, free air or free fluid Unremarkable urinary bladder. Osseous structures:There are no lytic or blastic lesions in the osseous structures. IMPRESSION: 1. Stable hypodensities in the hepatic parenchyma, compatible with liver cysts. 2. Cholelithiasis, without evidence of cholestasis. 3. No evidence of thoracic, intra-abdominal or pelvic metastases.
[2019-04-17] MEDS ORDERED: Iopamidol 370 76% 100 ML VIAL ONE (11:02)
== END 2019-04-17 08:40 | disposition home or self-care (01) ==
LOC: CT 08:39
PROVIDERS: ATTEND Internal Medicine Hematology & Oncology
DX: C19 Malignant neoplasm of rectosigmoid junction (principal); K76.89 Other specified diseases of liver; K80.20 Calculus of gallbladder without cholecystitis without obstruction
CPT/HCPCS: 71260; 74177; Q9967

== ENCOUNTER 2019-04-20 10:49 | Day surgery (SDC) | payer BC ==
[~2019-04-20 10:49] MED LIST changes: -DEXAMETHASONE SOD PHOSPHATE IVPB SCH; -DEXTROSE 5% IVPB SCH; -FLUOROURACIL IVPB SCH; -Leucovorin Calcium 50 MG in Dextrose 5% in Water 50 ML IVPB SCH; -ONDANSETRON IVPB SCH; -Sodium Chloride 0.9% 20 ML ONE; -WATER IVPB SCH; -[UNRECOGNIZED DRUG - OTHER] IVPB SCH
[2019-04-20 12:17] VITALS: BP 114/69; TEMP 98.4
== END 2019-04-20 13:32 | disposition home or self-care (01) ==
LOC: ONC/OP 10:49
PROVIDERS: ATTEND Internal Medicine Hematology & Oncology
DX: Z51.11 Encounter for antineoplastic chemotherapy (principal); C20 Malignant neoplasm of rectum; Z88.6 Allergy status to analgesic agent
CPT/HCPCS: 96375; 96413; J1200; J9055

== ENCOUNTER 2019-04-27 09:26 | Day surgery (SDC) | payer BC, OTHER ==
[~2019-04-27 09:26] MED LIST changes: +DEXAMETHASONE SOD PHOSPHATE IVPB SCH; +DEXTROSE 5% IVPB SCH; +FLUOROURACIL IVPB SCH; +Leucovorin Calcium 50 MG in Dextrose 5% in Water 50 ML IVPB SCH; +ONDANSETRON IVPB SCH; +Sodium Chloride 0.9% 20 ML ONE; +WATER IVPB SCH; +[UNRECOGNIZED DRUG - OTHER] IVPB SCH
[2019-04-27 15:10] VITALS: BP 109/77; TEMP 98.4
== END 2019-04-27 15:13 | disposition home or self-care (01) ==
LOC: ONC/OP 09:26
PROVIDERS: ATTEND Internal Medicine Hematology & Oncology
DX: Z51.11 Encounter for antineoplastic chemotherapy (principal); C20 Malignant neoplasm of rectum; Z88.6 Allergy status to analgesic agent
CPT/HCPCS: 96367; 96376; 96413; 96416; 96417; J0640; J1100; J1200; J2405; J9055; J9190

== ENCOUNTER 2019-05-04 09:28 | Day surgery (SDC) | payer BC, OTHER ==
[~2019-05-04 09:28] MED LIST changes: -DEXAMETHASONE SOD PHOSPHATE IVPB SCH; -DEXTROSE 5% IVPB SCH; -FLUOROURACIL IVPB SCH; -Leucovorin Calcium 50 MG in Dextrose 5% in Water 50 ML IVPB SCH; -ONDANSETRON IVPB SCH; -Sodium Chloride 0.9% 20 ML ONE; -WATER IVPB SCH; -[UNRECOGNIZED DRUG - OTHER] IVPB SCH
[2019-05-04 12:46] VITALS: BP 92/59
== END 2019-05-04 12:49 | disposition home or self-care (01) ==
LOC: ONC/OP 09:28
PROVIDERS: ATTEND Internal Medicine Hematology & Oncology
DX: Z51.11 Encounter for antineoplastic chemotherapy (principal); C20 Malignant neoplasm of rectum
CPT/HCPCS: 96375; 96413; J1200; J9055

== ENCOUNTER 2019-05-11 09:49 | Day surgery (SDC) | payer BC, OTHER ==
[~2019-05-11 09:49] MED LIST changes: +DEXAMETHASONE SOD PHOSPHATE IVPB SCH; +DEXTROSE 5% IVPB SCH; +FLUOROURACIL IVPB SCH; +ONDANSETRON IVPB SCH; +WATER IVPB SCH; +[UNRECOGNIZED DRUG - OTHER] IVPB SCH
[2019-05-11] MEDS: Leucovorin Calcium 50 MG in Dextrose 5% in Water 50 ML IVPB SCH ×2 (10:30→10:52)
[2019-05-11 10:38] VITALS: BP 92/63; TEMP 98.4
== END 2019-05-11 14:12 | disposition home or self-care (01) ==
LOC: ONC/OP 09:49
PROVIDERS: ATTEND Internal Medicine Hematology & Oncology
DX: Z51.11 Encounter for antineoplastic chemotherapy (principal); C20 Malignant neoplasm of rectum; Z88.6 Allergy status to analgesic agent
CPT/HCPCS: 96367; 96375; 96413; 96416; 96417; J0640; J1100; J1200; J2405; J9055; J9190

== ENCOUNTER 2019-05-18 08:52 | Day surgery (SDC) | payer BC, OTHER ==
[2019-05-18] MEDS ORDERED: diphenhydrAMINE 25 MG in Sodium Chloride 0.9% 50 ML IVPB PRN (08:57)
[2019-05-18] MEDS ORDERED: Sodium Chloride 0.9% 20 ML ONE ×2 (08:58→09:12)
[2019-05-18] MEDS ORDERED: ADMIXTURE FEE IVPB SCH (09:00)
[2019-05-18] MEDS ORDERED: CETUXIMAB IVPB SCH (09:00)
[2019-05-18 09:41] VITALS: BP 126/57; TEMP 98.6
== END 2019-05-18 11:58 | disposition home or self-care (01) ==
LOC: ONC/OP 08:52
PROVIDERS: ATTEND Internal Medicine Hematology & Oncology
DX: Z51.12 Encounter for antineoplastic immunotherapy (principal); C20 Malignant neoplasm of rectum; Z88.6 Allergy status to analgesic agent
CPT/HCPCS: 96375; 96413; J1200; J1642; J9055

== ENCOUNTER 2019-05-25 10:12 | Day surgery (SDC) | payer BC, OTHER ==
[~2019-05-25 10:12] MED LIST changes: +Leucovorin Calcium 50 MG in Dextrose 5% in Water 50 ML IVPB SCH
[2019-05-25] MEDS ORDERED: Sodium Chloride 0.9% 20 ML ONE (10:17)
[2019-05-25 10:55] VITALS: BP 114/55; TEMP 98
== END 2019-05-25 13:24 | disposition home or self-care (01) ==
LOC: ONC/OP 10:12
PROVIDERS: ATTEND Internal Medicine Hematology & Oncology
DX: Z51.11 Encounter for antineoplastic chemotherapy (principal); C20 Malignant neoplasm of rectum; Z88.6 Allergy status to analgesic agent
CPT/HCPCS: 36415; 80053; 82248; 82378; 83615; 84100; 84550; 96367; 96375; 96413; 96416; 96417; J0640; J1100; J1200; J2405; J9055; J9190

== ENCOUNTER 2019-06-01 09:19 | Day surgery (SDC) | payer BC, OTHER ==
[~2019-06-01 09:19] MED LIST changes: -DEXAMETHASONE SOD PHOSPHATE IVPB SCH; -DEXTROSE 5% IVPB SCH; -FLUOROURACIL IVPB SCH; -Leucovorin Calcium 50 MG in Dextrose 5% in Water 50 ML IVPB SCH; -ONDANSETRON IVPB SCH; -WATER IVPB SCH; -[UNRECOGNIZED DRUG - OTHER] IVPB SCH
[2019-06-01 09:34] VITALS: BP 110/70; TEMP 98.5
[2019-06-01] MEDS ORDERED: Sodium Chloride 0.9% 20 ML ONE (09:57)
== END 2019-06-01 12:00 | disposition home or self-care (01) ==
LOC: ONC/OP 09:19
PROVIDERS: ATTEND Internal Medicine Hematology & Oncology
DX: Z51.12 Encounter for antineoplastic immunotherapy (principal); C20 Malignant neoplasm of rectum
CPT/HCPCS: 96375; 96413; J1200; J1642; J9055

== ENCOUNTER 2019-06-08 09:07 | Day surgery (SDC) | payer BC, OTHER ==
[~2019-06-08 09:07] MED LIST changes: -ADMIXTURE FEE CHEMO IVPB SCH; -CETUXIMAB IVPB SCH; +DEXAMETHASONE SOD PHOSPHATE IVPB SCH; +DEXTROSE 5% IVPB SCH; +FLUOROURACIL IVPB SCH; +Leucovorin Calcium 50 MG in Dextrose 5% in Water 50 ML IVPB SCH; +ONDANSETRON IVPB SCH; +WATER IVPB SCH; +[UNRECOGNIZED DRUG - OTHER] IVPB SCH; -diphenhydrAMINE 25 MG in Sodium Chloride 0.9% 50 ML IVPB SCH
[2019-06-08] MEDS ORDERED: diphenhydrAMINE 25 MG in Sodium Chloride 0.9% 50 ML IVPB PRN (09:11)
[2019-06-08] MEDS ORDERED: Sodium Chloride 0.9% 20 ML ONE (09:12)
[2019-06-08] MEDS ORDERED: CETUXIMAB IVPB SCH (09:15)
[2019-06-08] MEDS ORDERED: ADMIXTURE FEE IVPB SCH (09:15)
[2019-06-08 09:33] VITALS: BP 116/68; TEMP 97.9
== END 2019-06-08 15:33 | disposition home or self-care (01) ==
LOC: ONC/OP 09:07
PROVIDERS: ATTEND Internal Medicine Hematology & Oncology
DX: Z51.12 Encounter for antineoplastic immunotherapy (principal); C20 Malignant neoplasm of rectum; Z88.6 Allergy status to analgesic agent
CPT/HCPCS: 36415; 80053; 82248; 82378; 83615; 84100; 84550; 96376; 96413; 96416; 96417; J0640; J1100; J1200; J2405; J9055; J9190

== ENCOUNTER 2019-06-15 09:13 | Day surgery (SDC) | payer BC, OTHER ==
[~2019-06-15 09:13] MED LIST changes: +ADMIXTURE FEE IVPB SCH; +CETUXIMAB IVPB SCH; -DEXAMETHASONE SOD PHOSPHATE IVPB SCH; -DEXTROSE 5% IVPB SCH; -FLUOROURACIL IVPB SCH; -Leucovorin Calcium 50 MG in Dextrose 5% in Water 50 ML IVPB SCH; -ONDANSETRON IVPB SCH; -WATER IVPB SCH; -[UNRECOGNIZED DRUG - OTHER] IVPB SCH; +diphenhydrAMINE 25 MG in Sodium Chloride 0.9% 50 ML IVPB PRN; +diphenhydrAMINE 50 MG/ML VIAL IVP SCH
[2019-06-15] MEDS ORDERED: Sodium Chloride 0.9% 20 ML ONE (09:19)
[2019-06-15 10:03] VITALS: BP 101/66; TEMP 97.6
== END 2019-06-15 12:33 | disposition home or self-care (01) ==
LOC: ONC/OP 09:13
PROVIDERS: ATTEND Internal Medicine Hematology & Oncology
DX: Z51.12 Encounter for antineoplastic immunotherapy (principal); C20 Malignant neoplasm of rectum; Z88.6 Allergy status to analgesic agent
CPT/HCPCS: 96375; 96413; J1200; J1642; J9055

== ENCOUNTER 2019-06-22 09:50 | Day surgery (SDC) | payer BC ==
[~2019-06-22 09:50] MED LIST changes: +DEXAMETHASONE SOD PHOSPHATE IVPB SCH; +DEXTROSE 5% IVPB SCH; +FLUOROURACIL IVPB SCH; +Leucovorin Calcium 50 MG in Dextrose 5% in Water 50 ML IVPB SCH; +ONDANSETRON IVPB SCH; +WATER IVPB SCH; +[UNRECOGNIZED DRUG - OTHER] IVPB SCH; -diphenhydrAMINE 50 MG/ML VIAL IVP SCH
[2019-06-22] MEDS ORDERED: Sodium Chloride 0.9% 20 ML ONE (10:13)
[2019-06-22 10:20] VITALS: BP 100/65; TEMP 98.1
== END 2019-06-22 12:59 | disposition home or self-care (01) ==
LOC: ONC/OP 09:50
PROVIDERS: ATTEND Internal Medicine Hematology & Oncology
DX: Z51.11 Encounter for antineoplastic chemotherapy (principal); C20 Malignant neoplasm of rectum; Z88.6 Allergy status to analgesic agent
CPT/HCPCS: 96367; 96375; 96413; 96416; 96417; J0640; J1100; J1200; J2405; J9055; J9190

== ENCOUNTER 2019-06-29 09:23 | Day surgery (SDC) | payer BC ==
[~2019-06-29 09:23] MED LIST changes: +ADMIXTURE FEE CHEMO IVPB SCH; -ADMIXTURE FEE IVPB SCH; -DEXAMETHASONE SOD PHOSPHATE IVPB SCH; -DEXTROSE 5% IVPB SCH; -FLUOROURACIL IVPB SCH; -Leucovorin Calcium 50 MG in Dextrose 5% in Water 50 ML IVPB SCH; -ONDANSETRON IVPB SCH; -WATER IVPB SCH; -[UNRECOGNIZED DRUG - OTHER] IVPB SCH; -diphenhydrAMINE 25 MG in Sodium Chloride 0.9% 50 ML IVPB PRN; +diphenhydrAMINE 25 MG in Sodium Chloride 0.9% 50 ML IVPB SCH
[2019-06-29] MEDS ORDERED: Sodium Chloride 0.9% 20 ML ONE (09:31)
[2019-06-29 09:37] VITALS: BP 98/58; TEMP 98.1
== END 2019-06-29 11:47 | disposition home or self-care (01) ==
LOC: ONC/OP 09:23
PROVIDERS: ATTEND Internal Medicine Hematology & Oncology
DX: Z51.12 Encounter for antineoplastic immunotherapy (principal); C20 Malignant neoplasm of rectum; Z88.6 Allergy status to analgesic agent
CPT/HCPCS: 96375; 96413; J1200; J9055

== ENCOUNTER 2019-07-06 09:57 | Day surgery (SDC) | payer BC ==
[~2019-07-06 09:57] MED LIST changes: -ADMIXTURE FEE CHEMO IVPB SCH; -CETUXIMAB IVPB SCH; +DEXAMETHASONE SOD PHOSPHATE IVPB SCH; +DEXTROSE 5% IVPB SCH; +FLUOROURACIL IVPB SCH; +Leucovorin Calcium 50 MG in Dextrose 5% in Water 50 ML IVPB SCH; +ONDANSETRON IVPB SCH; +WATER IVPB SCH; +[UNRECOGNIZED DRUG - OTHER] IVPB SCH; -diphenhydrAMINE 25 MG in Sodium Chloride 0.9% 50 ML IVPB SCH
[2019-07-06] MEDS ORDERED: diphenhydrAMINE 25 MG in Sodium Chloride 0.9% 50 ML IVPB PRN (09:59)
[2019-07-06] MEDS ORDERED: CETUXIMAB IVPB SCH (10:00)
[2019-07-06] MEDS ORDERED: ADMIXTURE FEE IVPB SCH (10:00)
[2019-07-06] MEDS ORDERED: Sodium Chloride 0.9% 20 ML ONE (10:00)
[2019-07-06 13:12] VITALS: BP 106/60; TEMP 98.4
== END 2019-07-06 13:16 | disposition home or self-care (01) ==
LOC: ONC/OP 09:57
PROVIDERS: ATTEND Internal Medicine Hematology & Oncology
DX: Z51.11 Encounter for antineoplastic chemotherapy (principal); C20 Malignant neoplasm of rectum; Z88.6 Allergy status to analgesic agent
CPT/HCPCS: 96367; 96375; 96413; 96417; J0640; J1100; J1200; J2405; J9055; J9190

== ENCOUNTER 2019-07-13 08:45 | Day surgery (SDC) | payer BC ==
[~2019-07-13 08:45] MED LIST changes: +ADMIXTURE FEE IVPB SCH; +CETUXIMAB IVPB SCH; -DEXAMETHASONE SOD PHOSPHATE IVPB SCH; -DEXTROSE 5% IVPB SCH; -FLUOROURACIL IVPB SCH; -Leucovorin Calcium 50 MG in Dextrose 5% in Water 50 ML IVPB SCH; -ONDANSETRON IVPB SCH; -WATER IVPB SCH; -[UNRECOGNIZED DRUG - OTHER] IVPB SCH; +diphenhydrAMINE 25 MG in Sodium Chloride 0.9% 50 ML IVPB PRN
[2019-07-13] MEDS ORDERED: Sodium Chloride 0.9% 20 ML ONE (08:47)
[2019-07-13 09:14] VITALS: BP 123/80; TEMP 98.1
== END 2019-07-13 11:46 | disposition home or self-care (01) ==
LOC: ONC/OP 08:45
PROVIDERS: ATTEND Internal Medicine Hematology & Oncology
DX: Z51.12 Encounter for antineoplastic immunotherapy (principal); C20 Malignant neoplasm of rectum; Z88.6 Allergy status to analgesic agent
CPT/HCPCS: 96375; 96413; J1200; J1642; J9055

== ENCOUNTER 2019-07-21 07:29 | Outpatient (CLI) | payer BC, OTHER ==
--- NOTE | 2019-07-21 08:43 | CT ---
CT chest with IV contrast CT abdomen and pelvis with IV and oral contrast HISTORY: Rectal cancer. Metastatic disease. Restaging. COMPARISON: 04/17/2019. FINDINGS: Chronic mild linear scarring at each lung base is stable. No focal lung mass, pleural fluid , pneumothorax, or mediastinal adenopathy. Minimal pericardial fluid is similar in appearance to the previous exam. Lobular cysts throughout the liver are similar in appearance to the prior exam, measuring up to 2.4 c m greatest diameter within the medial segment left liver lobe. No solid masses are evident. Gallstones on the prior study are not well visualized on today's exam. There is calcification throughout the arterial structures. Urinary bladder has normal appearance. Postoperative changes of the rectum. Left lower quadrant ostom y without evidence of complication. Degenerative changes lumbar spine with osteophytosis and mild disc bulges. IMPRESSION : Postoperative changes and chronic-type findings are stable. No evidence of recurrent metastatic disea se.
[2019-07-21] MEDS ORDERED: Iopamidol-370 76% 500 ML 1 ML ONE (09:49)
== END 2019-07-21 07:30 | disposition home or self-care (01) ==
LOC: BICCT 07:29
PROVIDERS: ATTEND Internal Medicine Hematology & Oncology
DX: C20 Malignant neoplasm of rectum (principal); C78.7 Secondary malignant neoplasm of liver and intrahepatic bile duct; R91.8 Other nonspecific abnormal finding of lung field; K76.89 Other specified diseases of liver; M47.816 Spondylosis without myelopathy or radiculopathy, lumbar region; M51.86 Other intervertebral disc disorders, lumbar region; M25.78 Osteophyte, vertebrae; Z98.890 Other specified postprocedural states
CPT/HCPCS: 71260; 74177; 82565; Q9967

== ENCOUNTER → 2019-07-22 | Day surgery (SDC) | payer BC, OTHER ==
[~2019-07-22] MED LIST changes: +DEXAMETHASONE SOD PHOSPHATE IVPB SCH; +DEXTROSE 5% IVPB SCH; +FLUOROURACIL IVPB SCH; +Leucovorin Calcium 50 MG in Dextrose 5% in Water 50 ML IVPB SCH; +ONDANSETRON IVPB SCH; +Sodium Chloride 0.9% 20 ML ONE; +WATER IVPB SCH; +[UNRECOGNIZED DRUG - OTHER] IVPB SCH
[2019-07-22 11:16] VITALS: BP 110/70; TEMP 98.2
== END ==
LOC: ONC/OP 10:55
PROVIDERS: ATTEND Internal Medicine Hematology & Oncology
DX: Z51.12 Encounter for antineoplastic immunotherapy (principal); C20 Malignant neoplasm of rectum; Z88.6 Allergy status to analgesic agent
CPT/HCPCS: 96367; 96375; 96413; 96417; J0640; J1100; J1200; J2405; J9055; J9190

== ENCOUNTER 2019-08-03 10:19 | Day surgery (SDC) | payer BC ==
[~2019-08-03 10:19] MED LIST changes: -Sodium Chloride 0.9% 20 ML ONE
[2019-08-03] MEDS ORDERED: Sodium Chloride 0.9% 20 ML ONE (10:30)
[2019-08-03 11:23] VITALS: BP 106/67; TEMP 98.5
== END 2019-08-03 13:36 | disposition home or self-care (01) ==
LOC: ONC/OP 10:19
PROVIDERS: ATTEND Internal Medicine Hematology & Oncology
DX: Z51.11 Encounter for antineoplastic chemotherapy (principal); C20 Malignant neoplasm of rectum; Z88.6 Allergy status to analgesic agent
CPT/HCPCS: 96367; 96413; 96416; 96417; J0640; J1100; J1200; J2405; J9055; J9190

== ENCOUNTER 2019-08-10 08:45 | Day surgery (SDC) | payer BC ==
[~2019-08-10 08:45] MED LIST changes: +ADMIXTURE FEE CHEMO IVPB SCH; -ADMIXTURE FEE IVPB SCH; -DEXAMETHASONE SOD PHOSPHATE IVPB SCH; -DEXTROSE 5% IVPB SCH; -FLUOROURACIL IVPB SCH; -Leucovorin Calcium 50 MG in Dextrose 5% in Water 50 ML IVPB SCH; -ONDANSETRON IVPB SCH; -WATER IVPB SCH; -[UNRECOGNIZED DRUG - OTHER] IVPB SCH; -diphenhydrAMINE 25 MG in Sodium Chloride 0.9% 50 ML IVPB PRN; +diphenhydrAMINE 25 MG in Sodium Chloride 0.9% 50 ML IVPB SCH
[2019-08-10] MEDS ORDERED: Sodium Chloride 0.9% 20 ML ONE (09:28)
[2019-08-10 09:49] VITALS: BP 109/67; TEMP 98
== END 2019-08-10 11:44 | disposition home or self-care (01) ==
LOC: ONC/OP 08:45
PROVIDERS: ATTEND Internal Medicine Hematology & Oncology
DX: Z51.12 Encounter for antineoplastic immunotherapy (principal); C20 Malignant neoplasm of rectum; Z88.6 Allergy status to analgesic agent
CPT/HCPCS: 96375; 96413; J1200; J1642; J9055

== ENCOUNTER 2019-08-17 08:56 | Day surgery (SDC) | payer BC ==
[~2019-08-17 08:56] MED LIST changes: -ADMIXTURE FEE CHEMO IVPB SCH; +ADMIXTURE FEE IVPB SCH; +DEXAMETHASONE SOD PHOSPHATE IVPB SCH; +DEXTROSE 5% IVPB SCH; +FLUOROURACIL IVPB SCH; +Leucovorin Calcium 50 MG in Dextrose 5% in Water 50 ML IVPB SCH; +ONDANSETRON IVPB SCH; +WATER IVPB SCH; +[UNRECOGNIZED DRUG - OTHER] IVPB SCH; +diphenhydrAMINE 25 MG in Sodium Chloride 0.9% 50 ML IVPB PRN; -diphenhydrAMINE 25 MG in Sodium Chloride 0.9% 50 ML IVPB SCH
[2019-08-17] MEDS ORDERED: Sodium Chloride 0.9% 20 ML ONE (09:13)
[2019-08-17 09:24] VITALS: BP 102/70; TEMP 97.9
== END 2019-08-17 13:27 | disposition home or self-care (01) ==
LOC: ONC/OP 08:56
PROVIDERS: ATTEND Internal Medicine Hematology & Oncology
DX: Z51.11 Encounter for antineoplastic chemotherapy (principal); C20 Malignant neoplasm of rectum
CPT/HCPCS: 96367; 96375; 96413; 96416; 96417; J0640; J1100; J1200; J2405; J9055; J9190

== ENCOUNTER 2019-08-24 08:28 | Day surgery (SDC) | payer BC ==
[~2019-08-24 08:28] MED LIST changes: -DEXAMETHASONE SOD PHOSPHATE IVPB SCH; -DEXTROSE 5% IVPB SCH; -FLUOROURACIL IVPB SCH; -Leucovorin Calcium 50 MG in Dextrose 5% in Water 50 ML IVPB SCH; -ONDANSETRON IVPB SCH; -WATER IVPB SCH; -[UNRECOGNIZED DRUG - OTHER] IVPB SCH; -diphenhydrAMINE 25 MG in Sodium Chloride 0.9% 50 ML IVPB PRN; +diphenhydrAMINE 25 MG in Sodium Chloride 0.9% 50 ML IVPB SCH
[2019-08-24] MEDS ORDERED: Sodium Chloride 0.9% 20 ML ONE (08:33)
== END 2019-08-24 10:44 | disposition home or self-care (01) ==
LOC: ONC/OP 08:28
PROVIDERS: ATTEND Internal Medicine Hematology & Oncology
DX: Z51.11 Encounter for antineoplastic chemotherapy (principal); C20 Malignant neoplasm of rectum; Z88.6 Allergy status to analgesic agent
CPT/HCPCS: 96375; 96413; J1200; J1642; J9055

== ENCOUNTER 2019-08-31 09:36 | Day surgery (SDC) | payer BC ==
[~2019-08-31 09:36] MED LIST changes: +DEXAMETHASONE SOD PHOSPHATE IVPB SCH; +DEXTROSE 5% IVPB SCH; +FLUOROURACIL IVPB SCH; +Leucovorin Calcium 50 MG in Dextrose 5% in Water 50 ML IVPB SCH; +ONDANSETRON IVPB SCH; +WATER IVPB SCH; +[UNRECOGNIZED DRUG - OTHER] IVPB SCH; +diphenhydrAMINE 25 MG in Sodium Chloride 0.9% 50 ML IVPB PRN; -diphenhydrAMINE 25 MG in Sodium Chloride 0.9% 50 ML IVPB SCH
[2019-08-31] MEDS ORDERED: Sodium Chloride 0.9% 20 ML ONE (09:40)
[2019-08-31 10:04] VITALS: BP 102/68; TEMP 98
== END 2019-08-31 13:02 | disposition home or self-care (01) ==
LOC: ONC/OP 09:36
PROVIDERS: ATTEND Internal Medicine Hematology & Oncology
DX: Z51.12 Encounter for antineoplastic immunotherapy (principal); C20 Malignant neoplasm of rectum; Z88.6 Allergy status to analgesic agent
CPT/HCPCS: 96367; 96375; 96413; 96416; 96417; J0640; J1100; J1200; J2405; J9055; J9190

== ENCOUNTER 2019-09-07 08:51 | Day surgery (SDC) | payer BC ==
[~2019-09-07 08:51] MED LIST changes: +ADMIXTURE FEE CHEMO IVPB SCH; -ADMIXTURE FEE IVPB SCH; -DEXAMETHASONE SOD PHOSPHATE IVPB SCH; -DEXTROSE 5% IVPB SCH; -FLUOROURACIL IVPB SCH; -Leucovorin Calcium 50 MG in Dextrose 5% in Water 50 ML IVPB SCH; -ONDANSETRON IVPB SCH; -WATER IVPB SCH; -[UNRECOGNIZED DRUG - OTHER] IVPB SCH; -diphenhydrAMINE 25 MG in Sodium Chloride 0.9% 50 ML IVPB PRN; +diphenhydrAMINE 25 MG in Sodium Chloride 0.9% 50 ML IVPB SCH
[2019-09-07] MEDS ORDERED: Sodium Chloride 0.9% 20 ML ONE (08:59)
[2019-09-07 09:22] VITALS: BP 121/82; TEMP 98.1
== END 2019-09-07 11:08 | disposition home or self-care (01) ==
LOC: ONC/OP 08:51
PROVIDERS: ATTEND Internal Medicine Hematology & Oncology
DX: Z51.12 Encounter for antineoplastic immunotherapy (principal); C20 Malignant neoplasm of rectum; Z88.6 Allergy status to analgesic agent
CPT/HCPCS: 96375; 96413; J1200; J1642; J9055

== ENCOUNTER 2019-09-14 10:09 | Day surgery (SDC) | payer BC ==
[~2019-09-14 10:09] MED LIST changes: -ADMIXTURE FEE CHEMO IVPB SCH; +ADMIXTURE FEE IVPB SCH; +DEXAMETHASONE SOD PHOSPHATE IVPB SCH; +DEXTROSE 5% IVPB SCH; +FLUOROURACIL IVPB SCH; +Leucovorin Calcium 50 MG in Dextrose 5% in Water 50 ML IVPB SCH; +ONDANSETRON IVPB SCH; +WATER IVPB SCH; +[UNRECOGNIZED DRUG - OTHER] IVPB SCH; +diphenhydrAMINE 25 MG in Sodium Chloride 0.9% 50 ML IVPB PRN; -diphenhydrAMINE 25 MG in Sodium Chloride 0.9% 50 ML IVPB SCH
[2019-09-14 10:49] VITALS: BP 95/63
[2019-09-14] MEDS ORDERED: Sodium Chloride 0.9% 20 ML ONE (13:36)
== END 2019-09-14 13:53 | disposition home or self-care (01) ==
LOC: ONC/OP 10:09
PROVIDERS: ATTEND Internal Medicine Hematology & Oncology
DX: Z51.12 Encounter for antineoplastic immunotherapy (principal); C20 Malignant neoplasm of rectum; Z88.6 Allergy status to analgesic agent
CPT/HCPCS: 96367; 96375; 96413; 96416; 96417; J0640; J1100; J1200; J2405; J9055; J9190

== ENCOUNTER 2019-09-28 09:37 | Day surgery (SDC) | payer BC, OTHER ==
[2019-09-28] MEDS ORDERED: Sodium Chloride 0.9% 20 ML ONE (09:41)
[2019-09-28] MEDS ORDERED: Sodium Chloride 0.9% 10 ML ONE (12:22)
== END 2019-09-28 12:35 | disposition home or self-care (01) ==
LOC: ONC/OP 09:37
PROVIDERS: ATTEND Internal Medicine Hematology & Oncology
DX: Z51.11 Encounter for antineoplastic chemotherapy (principal); C20 Malignant neoplasm of rectum; Z88.6 Allergy status to analgesic agent
CPT/HCPCS: 80053; 82248; 82378; 83615; 84100; 84550; 96367; 96375; 96413; 96416; 96417; J0640; J1100; J1200; J1642; J2405; J9055; J9190

== ENCOUNTER 2019-10-30 14:23 | Outpatient (CLI) | payer BC ==
[~2019-10-30 14:23] MED LIST changes: -ADMIXTURE FEE IVPB SCH; -CETUXIMAB IVPB SCH; -DEXAMETHASONE SOD PHOSPHATE IVPB SCH; -DEXTROSE 5% IVPB SCH; -FLUOROURACIL IVPB SCH; +Iopamidol-370 76% 500 ML 1 ML ONE; -Leucovorin Calcium 50 MG in Dextrose 5% in Water 50 ML IVPB SCH; -ONDANSETRON IVPB SCH; -WATER IVPB SCH; -[UNRECOGNIZED DRUG - OTHER] IVPB SCH; -diphenhydrAMINE 25 MG in Sodium Chloride 0.9% 50 ML IVPB PRN
--- NOTE | 2019-10-30 15:39 | CT ---
EXAM: CT of the chest with contrast CT of the abdomen and pelvis with contrast HISTORY: Metastatic rectal cancer with lung nodules and liver metastases COMPARISON: 07/21/2019 TECHNIQUE: 1. Multiple contiguous axial images were obtained in a CT the chest with contrast. Coronal and sagitt al reformats were performed. 2. Multiple contiguous axial images were obtained and a CT of the abdomen and pelvis with contrast. C oronal and sagittal reformats were performed. FINDINGS: CT CHEST: HEART: Normal in size without focal cardiac abnormality MEDIASTINUM: No hilar or mediastinal lymphadenopathy. LUNGS: No focal infiltrates, nodules, or masses. There is stable scarring in both lung bases. Emphyse matous changes are seen in the right apex. PLEURAL SPACE: No pneumothorax or pleural effusion. CHEST WALL SOFT TISSUES: There is a right-sided Mediport with its tip in the superior vena cava. CT ABDOMEN/PELVIS: ABDOMEN: LIVER: Stable well-circumscribed cysts are seen scattered throughout the liver measuring up to 2.5 cm in size. No suspicious liver lesions are seen. BILE DUCTS: Normal caliber. GALLBLADDER: No calcified gallstones. Normal caliber wall. PANCREAS: within normal limits. SPLEEN: within normal limits. ADRENALS: within normal limits. KIDNEYS: within normal limits. PELVIS: REPRODUCTIVE ORGANS: Status post hysterectomy. URETERS: within normal limits. BLADDER: within normal limits. PERITONEUM: No ascites or free air, no fluid collection. BOWEL: Normal caliber. There is an ostomy in the left lower quadrant of the abdomen. There is a very short rectal stump. MESENTERY AND RETROPERITONEUM: No enlarged mesenteric or retroperitoneal lymph nodes. VESSELS: Atherosclerotic calcifications. ABDOMINAL WALL: within normal limits. OSSEOUS STRUCTURES: No suspicious osseous lesions are seen. IMPRESSION: 1. No evidence of recurrent or metastatic disease. 2. Stable bilateral lower lobe scarring in the lung bases 3. Hepatic cysts
== END 2019-10-30 14:24 | disposition home or self-care (01) ==
LOC: BICCT 14:23
PROVIDERS: ATTEND Internal Medicine Hematology & Oncology
DX: C18.9 Malignant neoplasm of colon, unspecified (principal); C78.7 Secondary malignant neoplasm of liver and intrahepatic bile duct; R91.8 Other nonspecific abnormal finding of lung field; J98.4 Other disorders of lung; K76.89 Other specified diseases of liver
CPT/HCPCS: 71260; 74177

== ENCOUNTER 2019-11-03 09:23 | Day surgery (SDC) | payer BC ==
[~2019-11-03 09:23] MED LIST changes: +ADMIXTURE FEE IVPB SCH; +CETUXIMAB IVPB SCH; -Iopamidol-370 76% 500 ML 1 ML ONE; +diphenhydrAMINE 25 MG in Sodium Chloride 0.9% 50 ML IVPB SCH
[2019-11-03] MEDS ORDERED: Sodium Chloride 0.9% 20 ML ONE (09:29)
[2019-11-03 09:44] VITALS: BP 126/76; TEMP 98.6
== END 2019-11-03 12:10 | disposition home or self-care (01) ==
LOC: ONC/OP 09:23
PROVIDERS: ATTEND Internal Medicine Hematology & Oncology
DX: Z51.12 Encounter for antineoplastic immunotherapy (principal); C20 Malignant neoplasm of rectum; Z88.6 Allergy status to analgesic agent
CPT/HCPCS: 96375; 96413; J1200; J1642; J9055

== ENCOUNTER 2019-11-16 08:02 | Day surgery (SDC) | payer BC ==
[~2019-11-16 08:02] MED LIST changes: +ADMIXTURE FEE CHEMO IVPB SCH; -ADMIXTURE FEE IVPB SCH
[2019-11-16 08:41] VITALS: BP 129/72; TEMP 98.2
== END 2019-11-16 10:48 | disposition home or self-care (01) ==
LOC: ONC/OP 08:02
PROVIDERS: ATTEND Internal Medicine Hematology & Oncology
DX: Z51.12 Encounter for antineoplastic immunotherapy (principal); C20 Malignant neoplasm of rectum; Z88.6 Allergy status to analgesic agent
CPT/HCPCS: 96375; 96413; J1200; J9055

== ENCOUNTER 2019-11-23 08:52 | Day surgery (SDC) | payer BC ==
[~2019-11-23 08:52] MED LIST changes: -ADMIXTURE FEE CHEMO IVPB SCH; +ADMIXTURE FEE IVPB SCH; +DEXAMETHASONE SOD PHOSPHATE IVPB SCH; +DEXTROSE 5% IVPB SCH; +FLUOROURACIL IVPB SCH; +Leucovorin Calcium 50 MG in Dextrose 5% in Water 50 ML IVPB SCH; +ONDANSETRON IVPB SCH; +WATER IVPB SCH; +[UNRECOGNIZED DRUG - OTHER] IVPB SCH; +diphenhydrAMINE 25 MG in Sodium Chloride 0.9% 50 ML IVPB PRN; -diphenhydrAMINE 25 MG in Sodium Chloride 0.9% 50 ML IVPB SCH
[2019-11-23] MEDS ORDERED: Sodium Chloride 0.9% 20 ML ONE (08:56)
[2019-11-23] MEDS ORDERED: ADMIXTURE FEE IVPB SCH (09:15)
[2019-11-23] MEDS ORDERED: CETUXIMAB IVPB SCH (09:15)
[2019-11-23 09:28] VITALS: BP 116/75; TEMP 98.1
[2019-11-23 09:54] LABS: ALT (SGPT) 14 U/L (8-55); AST (SGOT) 16 U/L (5-34); Albumin 4.2 g/dL (3.4-4.8); Alkaline Phosphatase 112 U/L (40-110); Anion Gap 11 mmol/L (10-20); BUN (Urea Nitrogen) 16 mg/dL (9.8-20.1); Bilirubin, Total 0.3 mg/dL (0.2-1.2); Calc. Creatinine Clearance 67 mL/min (70-130); Calcium 8.9 mg/dL (7.8-10.44); Carbon Dioxide 24 mmol/L (23-31); Chloride 108 mmol/L (98-107); Estimated GFR-MDRD 66; Glucose 99 mg/dL (80-115); Potassium 4.3 mmol/L (3.5-5.1); Protein, Total 7.2 g/dL (6.0-8.3); Sodium 139 mmol/L (136-145); Uric Acid 4.8 mg/dL (2.6-6.0)
== END 2019-11-23 14:54 | disposition home or self-care (01) ==
LOC: ONC/OP 08:52
PROVIDERS: ATTEND Internal Medicine Hematology & Oncology
DX: Z51.11 Encounter for antineoplastic chemotherapy (principal); C20 Malignant neoplasm of rectum; Z88.6 Allergy status to analgesic agent
CPT/HCPCS: 80053; 82378; 83615; 84550; 96367; 96375; 96413; 96415; 96417; J0640; J1100; J1200; J2405; J9055; J9190

== ENCOUNTER 2019-12-07 09:16 | Day surgery (SDC) | payer BC ==
[2019-12-07] MEDS ORDERED: Sodium Chloride 0.9% 20 ML ONE (09:25)
[2019-12-07 10:38] VITALS: BP 113/74; TEMP 98.5
== END 2019-12-07 13:18 | disposition home or self-care (01) ==
LOC: ONC/OP 09:16
PROVIDERS: ATTEND Internal Medicine Hematology & Oncology
DX: Z51.11 Encounter for antineoplastic chemotherapy (principal); C20 Malignant neoplasm of rectum; Z88.6 Allergy status to analgesic agent
CPT/HCPCS: 96367; 96375; 96413; 96415; 96416; 96417; J0640; J1100; J1200; J2405; J9055; J9190

== ENCOUNTER 2019-12-21 09:07 | Day surgery (SDC) | payer BC ==
[2019-12-21] MEDS ORDERED: Sodium Chloride 0.9% 20 ML ONE (09:08)
[2019-12-21 13:16] VITALS: BP 128/65; TEMP 98.4
== END 2019-12-21 13:18 | disposition home or self-care (01) ==
LOC: ONC/OP 09:07
PROVIDERS: ATTEND Internal Medicine Hematology & Oncology
DX: Z51.11 Encounter for antineoplastic chemotherapy (principal); C20 Malignant neoplasm of rectum; Z88.6 Allergy status to analgesic agent
CPT/HCPCS: 96367; 96375; 96413; 96415; 96417; J0640; J1100; J1200; J2405; J9055; J9190

== ENCOUNTER 2019-12-28 07:04 | Day surgery (SDC) | payer BC ==
[2019-12-28] MEDS ORDERED: Ondansetron PF 4 MG/2 ML Vial ONE ×2 (08:35→09:38)
[2019-12-28 08:37] LABS: #Basophils 0.1 thou/uL (0.0-0.2); #Eosinphils 0.2 thou/uL (0.0-0.7); #Lymphocytes 2.2 thou/uL (1.20-3.40); #Monocytes 0.4 thou/uL (0.11-0.59); #Neutrophils 3.7 thou/uL (1.40-6.50); %Basophils 1.1 % (0.0-1.0); %Eosinophils 2.7 % (0.0-10.0); %Monocytes 5.6 % (0.0-10.0); %Neutrophils 56.6 % (42.0-75.0); Hemoglobin 15.1 g/dL (12.0-16.0); Mean Corpuscular HGB CONC 34.4 g/dL (32.0-36.0); Mean Corpuscular Hemoglobin 34.1 pg (27.0-31.0); Mean Corpuscular Volume 99.1 fL (78.0-98.0); Mean Platelet Volume 7.2 fL (7.4-10.4); Platelet Count 188 thou/uL (130-400); RBC Distribution Width 12.9 % (11.5-14.5); Red Blood Cell (RBC) Count 4.42 mill/uL (4.20-5.40); White Blood Cell (WBC) Count 6.6 thou/uL (4.8-10.8)
[2019-12-28 08:56] LABS: ALT (SGPT) 33 U/L (8-55); AST (SGOT) 23 U/L (5-34); Albumin 4.4 g/dL (3.4-4.8); Alkaline Phosphatase 116 U/L (40-110); Anion Gap 16 mmol/L (10-20); BUN (Urea Nitrogen) 12 mg/dL (9.8-20.1); Bilirubin, Total 0.4 mg/dL (0.2-1.2); Calc. Creatinine Clearance 0 mL/min (70-130); Calcium 9.5 mg/dL (7.8-10.44); Carbon Dioxide 28 mmol/L (23-31); Chloride 100 mmol/L (98-107); Estimated GFR-MDRD 55; Globulin 3.4 g/dL (2.4-3.5); Glucose 111 mg/dL (80-115); Lipase 12 U/L (8-78); Potassium 3.9 mmol/L (3.5-5.1); Protein, Total 7.8 g/dL (6.0-8.3); Sodium 140 mmol/L (136-145)
[2019-12-28] MEDS ORDERED: Ketorolac Tromethamine 30 MG/ML VIAL ONE (09:38)
[2019-12-28] MEDS ORDERED: Glycopyrrolate 0.2 MG/ML 5 ML SYRINGE ONE (09:38)
[2019-12-28] MEDS ORDERED: Lidocaine 1% PF 5 ML VIAL ONE (09:38)
[2019-12-28] MEDS ORDERED: Rocuronium Bromide 10 MG/ML (10ML VIAL) ONE (09:38)
[2019-12-28] MEDS ORDERED: PROPOFOL 200 MG/20 ML VIAL ONE (09:38)
[2019-12-28] MEDS ORDERED: PHENYLEPHRINE-NS 100 MCG/ML 10 ML SYRINGE ONE (09:38)
[2019-12-28] MEDS ORDERED: Dexamethasone 20 MG/5 ML VIAL ONE (09:38)
--- NOTE | 2019-12-28 10:12 | ULT ---
RIGHT UPPER QUADRANT ULTRASOUND: Date: 12/28/2019 HISTORY: Right upper quadrant pain, rectal cancer. FINDINGS: Multiple cysts are seen in the liver parenchyma, the largest measuring about 2.6 cm. The gallbladder is distended, measuring about 10.0 cm, with a shadowing 1.5 cm calculus. No gallbladder wall thickeni ng or pericholecystic fluid is seen. The common duct measures 3.0 mm in diameter. The pancreas and ri ght kidney are normal. No free fluid is seen in Morison's pouch. IMPRESSION: 1. Hepatic cysts. 2. Gallbladder distention with cholelithiasis. 3. If there is concern for acute cholecystitis, HIDA scan would be helpful. POS: AH
--- NOTE | 2019-12-28 11:42 | HP ---
HISTORY OF PRESENT ILLNESS: Ms. Cheng is a 64-year-old woman with history of metastatic rectal carcinoma, status post status post exploratory laparotomy, right oophorectomy, low anterior colorectal resection with end colostomy and wedge liver biopsy on 04/28/2018. The patient subsequently underwent neoadjuvant chemotherapy. She presented to emergency department today with a 2-day history of right upper quadrant postprandial abdominal pain, which started approximately 2 hours after breakfast consisting of fried eggs and sausage. Pain is associated with multiple episodes of nausea and nonbilious emesis. She rated her pain 9/10 at maximum intensity, which has decreased in intensity, but not completely resolved since. She denies any change in her bowel habits. She denies any fevers or chills. PAST MEDICAL HISTORY: Pertinent for rectal carcinoma with metastasis. SURGICAL HISTORY: As stated above. SOCIAL HISTORY: The patient lives independently. She used to smoke 10-12 cigarettes per day. Has not smoked since cancer diagnosis. She admits to occasional intake of ethanol in moderate amounts and denies any illicit drug abuse. FAMILY HISTORY: Noncontributory for this patient's age. PREHOSPITALIZATION MEDICATIONS: Include p.r.n. [id number] pain medications, although the patient admitted to taking some leftover tramadol at onset of pain with minimum relief. ALLERGIES: ACETAMINOPHEN. REVIEW OF SYSTEMS: Ten-point review of systems essentially unremarkable except as stated in Past Medical History and Chief Complaint. PHYSICAL EXAMINATION: GENERAL: This reveals a 64-year-old normally developed woman who is otherwise coherent and interactive and appears stated age. The patient is alert and oriented x3, appears to be in no acute distress at time of my evaluation. HEENT: Pupils equal, round, reactive to light and accommodation. She has no scleral icterus present. HEART: Reveals regular rate and rhythm. No murmurs or gallops auscultated. LUNGS: Clear to auscultation bilaterally. Her breathing is regular and nonlabored. ABDOMEN: Soft with right upper quadrant tenderness to palpation. Ostomy is viable and functional. Liver and spleen otherwise nonpalpable below costal margins. EXTREMITIES: Reveal 2+ radial and pedal pulses bilaterally. No ankle edema is present. NEUROLOGIC: Reveals no focal deficits present. LABORATORY FINDINGS: Today include a CBC with 6600 white blood cells, hemoglobin and hematocrit 15.1 and 43.8 respectively. Platelet count is 188,000. Metabolic profile: Sodium 140, potassium 3.9, chloride is 100, bicarb 28, BUN 12, creatinine is 1.01, glucose 111, total bilirubin 0.4, AST and ALT normal at 23 and 33 respectively. Alkaline phosphatase marginally elevated at 116. Serum lipase normal at 12. I have personally reviewed the abdominal ultrasound, which was obtained this morning, and this shows distended gallbladder with no pericholecystic fluid or gallbladder wall thickening present. There is intraluminal gallstone present. The common bile duct is normal in diameter for this patient's age at 3.4 mm. IMPRESSION: 1. Acute cholecystitis with cholelithiasis. 2. History of metastatic rectal carcinoma. RECOMMENDATIONS AND PLAN: Laparoscopic cholecystectomy. I offered the patient of an alternative option of bland diet with hopes that this may prevent recurrence. The patient declined that option and wishes to proceed with cholecystectomy. I have advised her of the risks and benefits of proposed surgery to include, but not limited to bleeding, infection, injury to bile duct or surrounding structures. This information is provided to the patient in the presence of nurse. The patient indicated understanding of information given. I answered her questions. She has granted consent for this admission and surgical intervention. Job ID: [id number]
[2019-12-28 13:11] LABS: SARS-CoV-2 NAA Rapid Test Not Detected (NotDetected)
[2019-12-28] MEDS ORDERED: Bupivacaine/Epinephrine 0.25% 30 ML VIAL ONE (13:46)
[2019-12-28] MEDS ORDERED: Fentanyl 100 MCG/2 ML VIAL ONE ×4 (13:48→17:17)
[2019-12-28] MEDS ORDERED: Lidocaine 2% Jelly 5 ML TUBE ONE (13:49)
[2019-12-28] MEDS ORDERED: Midazolam HCl 2 mg/2 ml Vial ONE (14:10)
[2019-12-28] MEDS ORDERED: Scopolamine 1.5 mg/72 hour Patch ONE (14:11)
[2019-12-28] MEDS ORDERED: traMADol HCl 50 MG TAB ONE (18:39)
--- NOTE | 2019-12-28 19:37 | OP ---
DATE OF PROCEDURE: 12/28/2019 PREOPERATIVE DIAGNOSES: Acute cholecystitis, cholelithiasis. POSTOPERATIVE DIAGNOSES: Acute cholecystitis, cholelithiasis. PROCEDURE PERFORMED: Laparoscopic cholecystectomy. ANESTHESIA: General endotracheal. ESTIMATED BLOOD LOSS: 10 mL. FLUIDS GIVEN: 1000 mL of crystalloids. COUNTS: Sponge and instrument counts were verified as correct x2. COMPLICATIONS: None apparent at the time of operation. INDICATIONS FOR OPERATION: A 64-year-old woman, presented with 2-day history of epigastric, right upper quadrant abdominal pain after eating. Clinical and radiographic examination were consistent with acute cholecystitis with cholelithiasis, for which the patient was brought to the operating room for laparoscopic cholecystectomy. Findings are consistent with dilated gallbladder, completely encased by omental adhesions. DESCRIPTION OF OPERATION: Informed consent was obtained from the patient, who was brought to the operating room and placed in supine position. Following general anesthesia, abdomen was sterilely prepped and draped in usual fashion. The skin below the umbilicus was infiltrated with 0.25% Marcaine with epinephrine. A small curvilinear infraumbilical incision was made using 11 scalpel. Umbilical stalk was grasped with a Ranulfo and elevated. Veress needle was inserted through the incision and placed in the peritoneal cavity, through which the abdomen was insufflated with 3 L of CO2 gas. Intraabdominal pressure noted at 3 mmHg. Following abdominal insufflation, Veress needle was removed and a 5 mm trocar introduced using a Visiport under laparoscopy. Laparoscopy confirmed proper placement of the port, no injuries to underlying structures. Additional laparoscopy reveals gallbladder in the usual anatomic location, completely encased by omental adhesions. Under direct laparoscopy, a 12 mm epigastric and two 5 mm right lateral subcostal ports were placed after the overlying skin was infiltrated with 0.25% Marcaine with epinephrine and appropriate incision was made. The patient was placed in the reverse Trendelenburg position, rotated to her left. I introduced a [place] dissector with cautery, using this to take down omental adhesions to expose the fundus of a markedly distended gallbladder in the usual anatomic location. A Prestige grasper was introduced through the right lateral subcostal port, grasping the fundus of the gallbladder, which was elevated cephalad. Omental adhesions were then bluntly dissected off the remainder of the gallbladder. A second Prestige grasper introduced through the right medial subcostal port, grasping the Keeley pouch, which was retracted laterally. I opened the peritoneum of the gallbladder at the infundibulum. This was bluntly opened using the [place] dissector. The cystic duct and artery were then dissected free from surrounding structures. Critical view of the triangle was obtained. Cystic duct divided between clips, applying 2 clips proximally and 1 clip at the junction of the cystic duct and gallbladder. Cystic artery was divided between clips in a similar fashion. The gallbladder itself was removed from the liver bed using cautery and delivered off the abdominal cavity using an EndoCatch. Operative site was irrigated with saline. A minor ooze from the gallbladder fossa was controlled using Annalisa. Finding no other pathology, laparoscopy was terminated. Fascia of the epigastric port was closed using 0 Vicryl suture and Endoclosure device under laparoscopy. Given, the patient's previous history of metastatic colorectal cancer, I visualized the liver, I did not see any evidence of metastatic disease on the liver surface. The abdomen was then desufflated. All ports and instruments were removed and accounted for. Skin incisions were closed using 4-0 Monocryl suture in subcuticular fashion. Dermabond was applied over incisional closure. The patient tolerated this operation without any apparent complication and was returned to recovery room in satisfactory condition. Job ID: [id number]
== END 2019-12-28 19:33 | disposition home or self-care (01) ==
LOC: ERS 07:04 → SDC 12:20
PROVIDERS: ATTEND Surgery
PROC: 0FT44ZZ Resection of Gallbladder, Percutaneous Endoscopic Approach (ICD-10-PCS; principal; 2019-12-28)
DX: K80.12 Calculus of gallbladder with acute and chronic cholecystitis without obstruction (principal); K76.89 Other specified diseases of liver; C20 Malignant neoplasm of rectum; Z79.899 Other long term (current) drug therapy; Z88.6 Allergy status to analgesic agent; Z87.891 Personal history of nicotine dependence; Z20.828 Contact with and (suspected) exposure to other viral communicable diseases
CPT/HCPCS: 36415; 76705; 80053; 83690; 85025; 88304; J1100; J1885; J2250; J2405; J2704; J3010; U0002

== ENCOUNTER 2020-01-11 09:44 | Day surgery (SDC) | payer BC ==
[~2020-01-11 09:44] MED LIST changes: -diphenhydrAMINE 25 MG in Sodium Chloride 0.9% 50 ML IVPB PRN; +diphenhydrAMINE 25 MG in Sodium Chloride 0.9% 50 ML IVPB SCH
[2020-01-11 10:05] VITALS: BP 114/55; TEMP 98.6
== END 2020-01-11 14:02 | disposition home or self-care (01) ==
LOC: ONC/OP 09:44
PROVIDERS: ATTEND Internal Medicine Hematology & Oncology
DX: Z51.11 Encounter for antineoplastic chemotherapy (principal); C20 Malignant neoplasm of rectum; Z88.0 Allergy status to penicillin; Z88.1 Allergy status to other antibiotic agents; Z88.6 Allergy status to analgesic agent
CPT/HCPCS: 96367; 96375; 96413; 96415; 96416; 96417; J0640; J1100; J1200; J2405; J9055; J9190

== ENCOUNTER 2020-01-25 09:21 | Day surgery (SDC) | payer BC ==
[2020-01-25 10:06] VITALS: BP 116/79; TEMP 98.5
== END 2020-01-25 15:04 | disposition home or self-care (01) ==
LOC: ONC/OP 09:21
PROVIDERS: ATTEND Internal Medicine Hematology & Oncology
DX: Z51.11 Encounter for antineoplastic chemotherapy (principal); C20 Malignant neoplasm of rectum; Z88.0 Allergy status to penicillin; Z88.1 Allergy status to other antibiotic agents; Z88.6 Allergy status to analgesic agent
CPT/HCPCS: 96367; 96375; 96413; 96417; J0640; J1100; J1200; J2405; J9055; J9190

== ENCOUNTER 2020-02-04 12:30 | Outpatient (CLI) | payer BC ==
[2020-02-04] MEDS ORDERED: Iopamidol 370 76% 100 ML VIAL ONE (13:01)
--- NOTE | 2020-02-04 15:15 | CT ---
CT OF CHEST AND ABDOMEN AND PELVIS PERFORMED WITH INTRAVENOUS CONTRAST ENHANCEMENT: 02/04/20 HISTORY: Metastatic rectal cancer with lung nodules and liver metastases. Evaluation fore response to treatmen t. History of chemotherapy. COMPARISON: 10/30/19 exam. The lungs show some emphysematous change in the upper lobes. Parenchymal scarring seen in the lung ba ses. I do not appreciate any pulmonary nodules or pleural effusion. Thoracic aorta is normal in caliber. No mediastinal or hilar adenopathy. No axillary adenopathy. CT OF ABDOMEN PERFORMED WITH CONTRAST ENHANCEMENT: Hepatic cysts are again identified. The spleen and pancreas regions are unremarkable. The gallbladder has been removed. Right and left adrenal glands and right and left kidneys are normal in size. There is no significant periaortic or mesenteric lymphadenopathy. There is a moderate amount of stool seen in the colon. CT OF PELVIS PERFORMED WITH CONTRAST ENHANCEMENT: A left sided colostomy is present. Keeley's pouch is noted. No recurrent disease in the region or t he rectum. No pelvic lymphadenopathy. Review of osseous structures showed no concerning lytic or blastic bony changes. IMPRESSION: Stable overall exam. No evidence for metastatic disease. POS: Elian
== END 2020-02-04 12:31 | disposition home or self-care (01) ==
LOC: BICCT 12:30 → CT 12:31
PROVIDERS: ATTEND Internal Medicine Hematology & Oncology
DX: C18.9 Malignant neoplasm of colon, unspecified (principal); R91.1 Solitary pulmonary nodule; C78.7 Secondary malignant neoplasm of liver and intrahepatic bile duct
CPT/HCPCS: 71260; 74177; 82565; Q9967

== ENCOUNTER 2020-05-10 08:30 | Outpatient (CLI) | payer MEDICARE ==
[2020-05-10 09:08] LABS: Estimated GFR-MDRD - POC Greater than 90
[2020-05-10] MEDS ORDERED: Iopamidol 370 76% 100 ML VIAL ONE (11:08)
== END 2020-05-10 08:31 | disposition home or self-care (01) ==
LOC: CT 08:30
PROVIDERS: ATTEND Internal Medicine Hematology & Oncology
DX: C20 Malignant neoplasm of rectum (principal); C78.7 Secondary malignant neoplasm of liver and intrahepatic bile duct; R91.8 Other nonspecific abnormal finding of lung field; K76.89 Other specified diseases of liver
CPT/HCPCS: 71260; 74177; 82565; Q9967

== ENCOUNTER 2020-09-01 08:28 | Outpatient (CLI) | payer MEDICARE ==
[2020-09-01 09:21] LABS: Estimated GFR-MDRD - POC Greater than 90
== END 2020-09-01 08:29 | disposition home or self-care (01) ==
LOC: CT 08:28
PROVIDERS: ATTEND Internal Medicine Hematology & Oncology
DX: C20 Malignant neoplasm of rectum (principal); C78.7 Secondary malignant neoplasm of liver and intrahepatic bile duct; R91.8 Other nonspecific abnormal finding of lung field; K76.89 Other specified diseases of liver; I31.3 Pericardial effusion (noninflammatory); Z93.3 Colostomy status
CPT/HCPCS: 71260; 74177; 82565

== ENCOUNTER 2021-01-05 09:06 | Outpatient (CLI) | payer MEDICARE | END 2021-01-05 09:07 | disposition home or self-care (01) | LOC: CT 09:06 | PROVIDERS: ATTEND Internal Medicine Hematology & Oncology | DX: C20 Malignant neoplasm of rectum (principal); R91.1 Solitary pulmonary nodule; C22.9 Malignant neoplasm of liver, not specified as primary or secondary | CPT/HCPCS: 71260; 74177 ==

== ENCOUNTER 2021-05-12 09:05 | Outpatient (CLI) | payer MEDICARE | END 2021-05-12 09:06 | disposition home or self-care (01) | LOC: CT 09:05 | PROVIDERS: ATTEND Internal Medicine Hematology & Oncology | DX: C20 Malignant neoplasm of rectum (principal); J98.11 Atelectasis; K86.2 Cyst of pancreas; K76.89 Other specified diseases of liver | CPT/HCPCS: 71260; 74177 ==

== ENCOUNTER 2021-09-13 08:00 | Outpatient (CLI) | payer MEDICARE | END 2021-09-13 08:01 | disposition home or self-care (01) | LOC: PET 08:00 | PROVIDERS: ATTEND Internal Medicine Gastroenterology | DX: C20 Malignant neoplasm of rectum (principal); C78.7 Secondary malignant neoplasm of liver and intrahepatic bile duct | CPT/HCPCS: 78815; A9552 ==

== ENCOUNTER 2021-12-07 09:30 | Outpatient (CLI) | payer MEDICARE | END 2021-12-07 09:31 | disposition home or self-care (01) | LOC: PET 09:30 | PROVIDERS: ATTEND Internal Medicine Hematology & Oncology | DX: C20 Malignant neoplasm of rectum (principal); R94.8 Abnormal results of function studies of other organs and systems | CPT/HCPCS: 78815; A9552 ==

== ENCOUNTER → 2022-03-20 | Outpatient (CLI) | payer MEDICARE | LOC: PET 12:30 | PROVIDERS: ATTEND Internal Medicine Hematology & Oncology | DX: C20 Malignant neoplasm of rectum (principal) | CPT/HCPCS: 78815; A9552 ==

== ENCOUNTER 2022-07-10 10:15 | Outpatient (CLI) | payer MEDICARE, OTHER | END 2022-07-10 10:16 | disposition home or self-care (01) | LOC: PET 10:15 | PROVIDERS: ATTEND Internal Medicine Hematology & Oncology | DX: C20 Malignant neoplasm of rectum (principal) | CPT/HCPCS: 78815; A9552 ==

== ENCOUNTER → 2022-10-02 | Outpatient (CLI) | payer MEDICARE, OTHER | LOC: PET 09:30 | PROVIDERS: ATTEND Internal Medicine Hematology & Oncology | DX: C20 Malignant neoplasm of rectum (principal) | CPT/HCPCS: 78815; A9552 ==